=== PATIENT | female | born 1985 | race Caucasian/White ===

== ENCOUNTER 2024-06-07 21:16 | Emergency (ER) | payer BC, SELFPAY ==
[2024-06-07] VITALS (8 sets, daily range): BP systolic 138; BP diastolic 95; PULSE 69–79; RESP 20; TEMP 36.2; O2SAT 97–100; BMI 38.1
--- NOTE | 2024-06-07 21:41 | CRLHL7_ITS ---
For Patients: As a result of the Century Cures Act, medical imaging exams and procedure reports are released immediately into your electronic medical record. You may view this report before your referring provider. If you have questions, please contact your health care provider. INDICATION: Shortness of breath TECHNIQUE: Chest radiograph 2 views COMPARISON: None FINDINGS: The sensitivity and specificity of the exam are moderately limited by the patient`s body habitus. Mediastinum: The mediastinum is normal in appearance. The heart silhouette is normal in size and morphology. Lung: Both lungs are unremarkable in appearance. No sign of pleural effusion seen. No pneumothorax is identified. Bone and Soft tissue: Unremarkable for age. Bilateral metallic nipple piercings are noted. IMPRESSION: 1. No acute cardiopulmonary disease is seen. Dictated by: Carlito White MD @ 06/07/2024 22:09:59 (Electronically Signed)
[2024-06-07 21:45] LABS: Basophils Absolute Auto 0.04 K/uL (0.00-0.30); Basophils Percent Auto 0.4 % (0.0-3.0); Eosinophils Absolute Auto 0.42 K/uL (0.00-0.50); Eosinophils Percent Auto 4.7 % (0.0-7.0); Hematocrit 34.1 % (33.0-51.0); Hemoglobin* 10.6 gm/dL (12.0-16.0); Immature Granulocytes Abs Auto 0.01 K/uL (0.00-0.30); Immature Granulocytes Pct Auto 0.1 %; Lymphocytes Absolute Auto 3.54 K/uL (0.90-2.90); Lymphocytes Percent Auto 39.8 % (20-44); Mean Corpuscular HGB Conc 31 gm/dL (32-36); Mean Corpuscular Hemoglobin 27 pg (26-34); Mean Corpuscular Volume 86 fL (80-100); Monocytes Percent Auto 6.3 % (0.0-11.0); Neutrophils Absolute Auto 4.32 K/uL (1.7-7.0); Neutrophils Percent Auto 48.7 % (42.0-72.0); Platelet Count* 287 K/uL (140-440); RDW Coefficient of Variation % 14.7 % (11.5-15.5); Red Blood Count 3.98 m/uL (4.00-5.20); White Blood Count* 8.89 K/uL (4.50-11.00)
[2024-06-07 21:58] LABS: Chloride* 111 mmol/L (96-114); Potassium* 3.7 mmol/L (3.6-5.1); Sodium* 138 mmol/L (135-149)
[2024-06-07 22:01] LABS: Anion Gap 7 mEq/L (7-15); Blood Urea Nitrogen* 18 mg/dL (5-24); Carbon Dioxide* 20 mmol/L (20-32); Creatinine* 0.9 mg/dL (0.5-1.5); Est. Creatinine Clearance* 70.11; Estimated Glomerular Filt Rate 84 ml/min
[2024-06-07 22:02] LABS: Calcium* 8.7 mg/dL (8.4-10.6); Glucose* 89 mg/dL (60-115)
[2024-06-07 22:06] LABS: Slide Review Reflex No
--- NOTE | 2024-06-07 22:10 | ED_ITS ---
HPI - General Adult General Chief complaint: Shortness of Breath/Dyspnea Stated complaint: Shortness of breath Time Seen by Provider: 06/07/24 21:19 History of Present Illness HPI narrative: This 39-year-old female comes in reporting shortness of breath and chest discomfort. She arrives with normal vital signs but reports shortness of breath with almost any kind of exertion. She also describes some chest discomfort that is worse with taking a deep breath but also is present otherwise. She also states that she has bilateral lower extremity swelling. She does not report any fevers. She does have an occasional cough that is nonproductive. She is a smoker and states that her mother recently from a sudden heart attack. Her mother was 59 years old and also was a smoker. Related Data Home Medications ?Medication ?Instructions ?Recorded ?Confirmed gabapentin 300 mg capsule 300 mg PO 3XD 06/07/24 06/07/24 topiramate 100 mg tablet 100 mg PO BID 06/07/24 06/07/24 Previous Rx's ?Medication ?Instructions ?Recorded furosemide 20 mg tablet (Lasix) 20 mg PO DAILY #14 tabs 06/07/24 Allergies Allergy/AdvReac Type Severity Reaction Status Date / Time Iodinated Contrast Media Allergy Verified 06/07/24 21:36 Review of Systems Status of ROS: Reports: 10 or more systems reviewed and unremarkable except as noted in History and below Narrative: Constitutional: No fevers, no weight gain or loss. Eyes: No discharge. No vision changes. HENT: No congestion, no sore throat, no ear pain. Cardiovascular: No palpitations. Respiratory: Shortness of breath with exertion. Gastrointestinal: No abdominal pain, no vomiting, no diarrhea. Genitourinary: No dysuria, no hematuria. Musculoskeletal: Normal range of motion. Skin: No rashes, no pruritis. Neurological: No dizziness, weakness, speech change. She reports tingling se nsations throughout her body and did start taking gabapentin about a week or 2 ago to treat these symptoms. Endo/Heme/Allergies: No bruising or bleeding. No polydipsia. Pysch: no suicidality, no anxiety, no insomnia. All other systems reviewed and are negative. Exam Narrative: Exam Narrative: Constitutional: Well-developed, well-nourished, no acute distress. HEENT: Normocephalic, atraumatic. Neck: Normal range of motion. Nontender. Supple. Heart: Regular. No murmurs. Normal rate. Intact distal pulses. Lungs: Clear to auscultation. No wheezes, rhonchi, or rales. Abdomen: Normal bowel sounds. Nontender. No rebound tenderness. Genitalia: Deferred. Back: No midline tenderness. Normal range of motion. Extremities: Normal range of motion. No injury. Skin: Intact. No rash. Warm. No erythema or pallor. Neurologic: No altered sensation. No weakness. Alert and oriented. Psychiatric: No suicidality. No anxiety or depression. No insomnia. Nursing notes and vitals signs are reviewed. Const: Vital Signs, click to edit/add: Vital Signs - 24 hr 06/07/24 21:28 06/07/24 21:31 06/07/24 21:35 Temperature 97.1 F L Pulse Rate 79 73 Pulse Rate [Pulse Oximeter] 71 Respiratory Rate 20 Blood Pressure 138/95 H Blood Pressure [Ri ght Upper Arm] 138/95 H Pulse Oximetry 100 98 100 Oxygen Delivery Me thod Room Air 06/07/24 21:45 06/07/24 22:00 06/07/24 22:15 Temperature Pulse Rate 74 77 69 Pulse Rate [Pulse Oximeter] Respiratory Rate Blood Pressure Blood Pressure [Ri ght Upper Arm] Pulse Oximetry 100 100 98 Oxygen Delivery Me thod 06/07/24 22:30 06/07/24 22:45 Temperature Pulse Rate 74 75 Pulse Rate [Pulse Oximeter] Respiratory Rate Blood Pressure Blood Pressure [Ri ght Upper Arm] Pulse Oximetry 98 97 Oxygen Delivery Me thod Course Vital Signs Vital signs: Initial Vital Signs Temperature 97.1 F L 06/07/24 21:28 Temperature Source Temporal Artery Scan 06/07/24 21:28 Pulse Rate 71 06/07/24 21:28 Pulse Rhythm Regular 06/07/24 21:28 Respiratory Rate 20 06/07/24 21:28 Blood Pressure 138/95 H 06/07/24 21:28 Blood Pressure Mean 109 H 06/07/24 21:28 Blood Pressure Position Supine 06/07/24 21:28 Pulse Oximetry 100 06/07/24 21:28 Oxygen Delivery Method Room Air 06/07/24 21:28 Vital Signs Temperature 97.1 F L 06/07/24 21:28 Pulse Rate 71 06/07/24 21:28 Respiratory Rate 20 06/07/24 21:28 Blood Pressure 138/95 H 06/07/24 21:28 Pulse Oximetry 100 06/07/24 21:28 Oxygen Delivery Method Room Air 06/07/24 21:28 Temperature 97.1 F L 06/07/24 21:28 Pulse Rate 75 06/07/24 22:45 Respiratory Rate 20 06/07/24 21:28 Blood Pressure 138/95 H 06/07/24 21:35 Pulse Oximetry 97 06/07/24 22:45 Oxygen Delivery Method Room Air 06/07/24 21:28 Medical Decision Making MDM Narrative Medical decision making narrative: This patient comes in reporting shortness of breath and chest discomfort. She does state that her chest pain is distinctly reproducible when taking a deep breath and with certain movements. She does arrive with normal vital signs. She does have some cardiac risk factors with family history and smoking. Labs and EKG are acquired. These all returned with normal results. Her D-dimer is in normal range. Troponin is negative. EKG is normal. And her B type nitrate peptide is normal. Her symptoms are likely due to chest wall pain. She also is retaining some fluid in her lower extremities. The patient is okay to be discharged home. She does have a follow-up appointment with her primary physician in a week. I did recommend a stress test for further have evaluation. She did receive prescription for some tablets of Lasix for diuresis and anInstymed prescription of Toradol. Lab Data Labs: Lab Results 06/07/24 06/07/24 Range/Units 21:41 22:09 WBC 8.89 (4.50-11.00) K/uL RBC 3.98 L (4.00-5.20) m/uL Hgb 10.6 L (12.0-16.0) gm/dL Hct 34.1 (33.0-51.0) % MCV 86 (80-100) fL MCH 27 (26-34) pg MCHC 31 L (32-36) gm/dL RDW Coeff of Alissa 14.7 (11.5-15.5) % Plt Count 287 (140-440) K/uL Neut % (Auto) 48.7 (42.0-72.0) % Lymph % (Auto) 39.8 (20-44) % [place] % (Auto) 6.3 (0.0-11.0) % Eos % (Auto) 4.7 (0.0-7.0) % Baso % (Auto) 0.4 (0.0-3.0) % Neut # (Auto) 4.32 (1.7-7.0) K/uL Lymph # (Auto) 3.54 H (0.90-2.90) K/uL [place] # (Auto) 0.60 (0.00-0.90) K/UL Eos # (Auto) 0.42 (0.00-0.50) K/uL Baso # (Auto) 0.04 (0.00-0.30) K/uL Abs Immat Gran (auto) 0.01 (0.00-0.30) K/uL Imm/Tot Granulo (auto) 0.1 % D-Dimer Quant (PE/DVT) 0.37 (0.00-0.50) ug/ml Sodium 138 (135-149) mmol/L Potassium 3.7 (3.6-5.1) mmol/L Chloride 111 (96-114) mmol/L Carbon Dioxide 20 (20-32) mmol/L Anion Gap 7 (7-15) mEq/L BUN 18 (5-24) mg/dL Creatinine 0.9 (0.5-1.5) mg/dL Estimated Creat Clear 70.11 Estimated GFR 84 ml/min Glucose 89 (60-115) mg/dL Calcium 8.7 (8.4-10.6) mg/dL Troponin I < 0.01 L (0.01-0.04) ng/mL C-Reactive Protein 0.6 (0.5-1.0) mg/dL NT-Pro-B Natriuret Pep < 20 pg/mL ECG Data Attestation: I personally reviewed and interpreted this ECG as follows: Interpretation: Normal sinus rhythm. Rate is 79 beats per minute. There are no ST or T-wave abnormalities. Discharge Plan Discharge Clinical Impression: Acute chest wall pain, Bilateral edema of lower extremity Patient Disposition: Home, Self-Care Condition: Stable Additional Instructions: Take medication as prescribed. Follow up with MD as scheduled. Return if worsening. Prescriptions: New furosemide [Lasix] 20 mg tablet 20 mg PO DAILY Qty: 14 2RF No Action gabapentin 300 mg capsule 300 mg PO 3XD topiramate 100 mg tablet 100 mg PO BID Follow Up/Referrals: Provider,Not a Local [Primary Care Provider] - Stand Alone Forms: [employer] Info Instructions
[2024-06-07 22:11] LABS: D Dimer Quantitative* 0.37 ug/ml (0.00-0.50)
[2024-06-07 22:25] LABS: C Reactive Protein* 0.6 mg/dL (0.5-1.0)
--- OUTSIDE RECORDS SUMMARY | 2024-06-07 22:44 | XMS_ITS | Encounter Summary ---
Author Organization [facility] Address [address] [place] [address] Care Team Providers Care Master Data Analyst Name Role Phone Elsewhere, Pcp Primary Care Provider Unavailabl e Reason for Visit * Reason Comments Fatigue * Appointment Request (Routine) - Closed Specialty Diagnoses / Procedures Referred By Contbill t Referred To Contact Family Medicine Referral ID Status Reason Start Date Expiration Date Visits Re quested Visits Authorized [id number] Closed 05/30/2024 05/30/2025 1 1 Encounter Details Date Type Department Care Team (Late st Contact Info) Description 05/30/2024 2:00 PM CDT Office Visit Department of Family Medicine, [facility] [place], in [place], [place] [address] [id number] Reid Garcia M.D. [address] [phone] Malaise (Concern For Covid-19) (Primary Dx) Social History Tobacco Use Types Packs/Day Years Used Date Smoking Tobacco: Some Days Cigarettes Smokeless Tobacco: Never Tobacco Cessation:Ready to Q uit: Not Asked; Counseling Given: Not Answered Alcohol Use Standard Drinks/Week Comments Yes 0 (1 standard drink = 0.6 oz pur e alcohol) special occasions [facility] Utilities Answer Date Recorded In the past 12 months has th e electric, gas, oil, or water company threatened to shut off services in your home? No 05/30/2024 Humiliation, Afraid, Rape, and Kick questionnair e Answer Date Recorded Within the last year, have y ou been afraid of your partner or ex-partner? No 10/19/2021 Within the last year, have y ou been humiliated or emotionally abused in other ways by your partner or ex-partner? No Within the last year, have y ou been kicked, hit, slapped, or otherwise physically hurt by your partner or ex-partner? No 10/19/2021 Within the last year, have y ou been raped or forced to have any kind of sexual activity by your partner or ex-partner? No 10/19/2021 Social Connection and Isolat ion Panel [NHANES] Answer Date Recorded In a typical week, how many times do you talk on the phone with family, friends, or neighbors? More than three times a week 10/19/2021 How often do you get togethe r with friends or relatives? Twice a week 10/19/2021 How often do you attend chur or yarsanism services? More than 4 times per year 10/19/2021 Do you belong to any clubs o r organizations such as adventist groups, unions, fraternal or athletic groups, or school groups? No 10/19/2021 How often do you attend meet ings of the clubs or organizations you belong to? Patient declined 10/19/2021 Are you , , di vorced, , never , or living with a partner? Living with partner 10/19/2021 AUDIT-C Answer Date Recorded Q1: How often do you have a drink containing alc ohol? Monthly or less 10/19/2021 Q2: How many drinks containi ng alcohol do you have on a typical day when you are drinking? 1 or 2 10/19/2021 Q3: How often do you have si x or more drinks on one occasion? Never 10/19/2021 Overall Financial Resource Strain (CARDIA) Answe r Date Recorded How hard is it for you to pa y for the very basics like food, housing, medical care, and heating? Not hard at all 10/19/2021 PHQ-2 Answer Date Recorded PHQ-2 Score 0 05/30/2024 [facility]at ional [facility] - Occupational Stress Questionnaire Answer Date Recorded Do you feel stress - tense, restless, nervous, or anxious, or unable to sleep at night because your mind is troubled all the time - these days? Only a little 10/19/2021 Exercise Vital Sign Answer Date Recorde d On average, how many days pe r week do you engage in moderate to strenuous exercise (like a brisk walk)? 2 days 05/30/2024 On average, how many minutes do you engage in exercise at this level? 20 min 05/30/2024 Hunger Vital Sign Answer Date Recorded Within the past 12 months, y ou worried that your food would run out before you got the money to buy more. Never true 05/30/20 24 Within the past 12 months, t he food you bought just didn't last and you didn't have money to get more. Never true 05/30/2024 PRAPARE - Transportation Answer Date Re corded In the past 12 months, has l ack of transportation kept you from medical appointments or from getting medications? No 05/16 In the past 12 months, has l ack of transportation kept you from meetings, work, or from getting things needed for daily living? No 05/30/2024 Nutrition Answer Date Recorded On average, how many serving s of fruits and vegetables do you eat per day (serving size is equal to 1 cup or approximately the size of a tennis ball)? 0-2 05/30/2024 Dental Answer Date Recorded Dental: Regular Dentist Yes 04/26/20 Employment Answer Date Recorded Employment status Unemployed/not in th e paid workforce but seeking employment 05/30/2024 Housing Stability Answer Date Recorded What is your living situation today? I [facility] place to live 05/30/2024 Education Answer Date Recorded What is the highest level of school you have completed or the highest degree you have received? 12th grade 04/23/2019 Sex and Gender Information Value Date Recorded Sex Assigned at Female 01/28/2019 9:58 AM CDT Gender Identity Female 01/28/2019 9:58 AM CDT Sexual Orientation Straight 01/28/2019 9: 58 AM CDT documented as of this encounter Last Filed Vital Signs Vital Sign Reading Time Taken Comments Blood Pressure 127/76 05/30/2024 2:03 PM CDT Pulse 98 05/30/2024 2:03 PM CDT Temperature 37.1 ??C (98.7 ??F) 05/30/2024 2:03 PM CD T Respiratory Rate - - Oxygen Saturation - - Inhaled Oxygen Concentration - - Weight 106 kg (233 lb 14.5 oz) 05/30/2024 2:03 P M CDT Height - - Body Mass Index 40.38 07/16/2021 8:36 AM CDT documented in this encounter Progress Notes * Reid Garcia M.D. - 05/30/2024 2:00 PM CDT SUBJECTIVE CHIEF COMPLAINT/REASON FOR VISIT Tess Wren is a 39 y.o. female that presents with fatigue as well as numbness/tingling in the extremities x 2 weeks. She noted that her lower leg(s) became indented when she leaned against something a few days ago. She has also been coughing rather harshly now over the last 2 days and feeling her breathing is somewhat tight. Her wrist/forearms have been weak/shaky and painful when she is lifting anything. CURRENT MEDICATIONS Current Outpatient Medications: acetaminophen (TYLENOL) 500 mg tablet, Take 1,000 mg by mouth as needed. , Disp: , Rfl: calcium carbonate (TUMS ULTRA) 250 mg (100 mg calcium) chewable tablet, 500 mg as needed. , Disp: ,Rfl: ibuprofen (ADVIL,MOTRIN) 600 mg tablet, TAKE 1 TABLET(600 MG) BY MOUTH THREE TIMES DAILY FOR 14 DAYS, Disp: 90 tablet, Rfl: 3 topiramate (TOPAMAX) 100 mg tablet, Take 1 tablet (100 mg total) by mouth 2 (two) times a day., Disp: 60 tablet, Rfl: 11 ALLERGIES/CONTRAINDICATIONS Allergies Allergen Reactions Contrast Dye [Gadolinium-Containing Contrast Media] Other (see comments) Iodinated Contrast Media Hives (Reselect Reaction) OBJECTIVE Vitals: 05/30/24 1403 BP: 127/76 Pulse: 98 Temp: 37.1 ??C PHYSICAL EXAMINATION General Appearance: No acute distress. Appearing somewhat tired today. HEENT: Oropharynx clear. Ears fine. Neck negative for masses or nodes of significance. Chest: Lungs clear, no accessory muscle use. Short fits of dry cough. Extremities: Good range of motion of all extremities, gait fine. Arms with tenderness along the flexor compartment of both forearms near the wrist. Finger range of motion and strength normal. Integumentary: Skin color and turgor normal. DIAGNOSTICS CBC with Hgb 10.7, crit 34.7. Bmp and TSH essentially within normal limits. COVID/influenza screen negative. ASSESSMENT / PLAN URI, NOS, likely viral. Mild anemia. Paresthesias as noted above, NOS. Mild fluid retention in the lower legs. Tendonitis vs overuse in the forearms/wrists. Use of wrist braces, compression stockings and other conservative measures reviewed. Prescriptions for zithromax and neurontin are discussed to be held at the pharmacy to be consideredif not improving as expected. All questions are discussed and answered. Patient voices good understanding and agreement with our plan. Follow-up with primary care otherwise as needed. documented in this encounter Plan of Treatment Not on file documented as of this encounter Procedures Procedure Name Priority Date/Time Associated Diagnosis Comments SARS COV-2, INFLUENZA A/B, PCR, V Routine 05/30/2024 2:31 PM CDT Malaise (Concern For Covid-19) documented in this encounter Results * S-TSH (Thyroid-Stimulating Hormone - Sensitive) (05/30/2024 2:40 PM CDT) TSH, Sensitive 0.9 0.3 - 4.2 mIU/L 05/30/2024 3:10 PM CDT [facility] Blood (Blood, Venous) 05/30/2024 2:40 PM CDT 05/30/2024 2:41 PM CDT Reid Garcia M.D. LAB BLOOD ADD-ON [facility] [address] [place] [address], [facility] [place] [address] [place] [address] * (ABNORMAL) Basic Metabolic Panel (05/30/2024 2:40 PM CDT) Potassium, P 4.3 3.6 - 5.2 mmol/L 05/30/2024 3:01 PM CDT [facility] Sodium, P 143 135 - 145 mmol/L 05/30/2024 3:01 PM CDT [facility] Chloride, P 109(H) 98 - 107 mmol/L 05/30/2024 3:01 PM CDT [facility] Bicarbonate, P 23 22 - 29 mmol/L 05/30/2024 3:01 PM CDT [facility] Anion Gap, P 11 7 - 15 05/30/2024 3:01 PM CDT [facility] BUN (Blood Urea Nitrogen), P 18 6 - 21 mg/dL 05/30/2024 3:01 PM CDT [facility] Creatinine 0.87 0.59 - 1.04 mg/dL 05/30/2024 3:01 PM CDT [facility] Estimated GFR (eGFR) 87 >=60 mL/min/BSA 05/30/2024 3:01 PM CDT [facility] Comment: Estimated GFR calculated using the 2020 CKD_EPI creatinine equation. Calcium, Total, P 9.3 8.6 - 10.0 mg/dL 05/30/2024 3:01 PM CDT [facility] Glucose, P 118 70 - 140 mg/dL 05/30/2024 3:01 PM CDT [facility] Blood (Blood, Venous) 05/30/2024 2:40 PM CDT 05/30/2024 2:41 PM CDT Reid Garcia M.D. LAB BLOOD ADD-ON [facility] [address] [place] [address], [facility] [facility] [place] [address] [place] [address] * (ABNORMAL) CBC with Differential, Blood (05/30/2024 2:40 PM CDT) Hemoglobin 10.7(L) 11.6 - 15.0 g/dL 05/30/2024 2:46 PM CDT [facility] Hematocrit 34.7(L) 35.5 - 44.9 % 05/30/2024 2:46 PM CDT [facility] Erythrocytes 4.05 3.92 - 5.13 x10(12)/L 05/30/2024 2:46 PM CDT [facility] MCV 85.7 78.2 - 97.9 fL 05/30/2024 2:46 PM CDT [facility] RBC Distrib Width 14.6 12.2 - 16.1 % 05/30/2024 2:46 PM CDT [facility] Platelet Count 295 157 - 371 x10(9)/L 05/30/2024 2:46 PM CDT [facility] Leukocytes 8.5 3.4 - 9.6 x10(9)/L 05/30/2024 2:46 PM CDT [facility] Neutrophils 4.83 1.56 - 6.45 x10(9)/L 05/30/2024 2:46 PM CDT [facility] Lymphocytes 2.80 0.95 - 3.07 x10(9)/L 05/30/2024 2:46 PM CDT [facility] Monocytes 0.43 0.26 - 0.81 x10(9)/L 05/30/2024 2:46 PM CDT [facility] Eosinophils 0.38 0.03 - 0.48 x10(9)/L 05/30/2024 2:46 PM CDT [facility] Basophils 0.07 0.01 - 0.08 x10(9)/L 05/30/2024 2:46 PM CDT [facility] Blood (Blood, Venous) 05/30/2024 2:40 PM CDT 05/30/2024 2:41 PM CDT Reid Garcia M.D. LAB BLOOD ADD-ON [facility] [address] [place] [address], [facility] [facility] [place] [address] [place] [address] * SARS CoV-2, Influenza A/B, PCR (05/30/2024 2:31 PM CDT) Influenza A, PCR Undetected Undetected 05/30/20 3:29 PM CDT [facility] Comment:Influenza A viral RN A absent. Influenza B, PCR Undetected Undetected 05/30/20 3:29 PM CDT [facility] Comment:Influenza B viral RN A absent. SARS-Coronavirus -2, PCR Undetected Undetected 05/30/2024 3:29 PM CDT [facility] Comment: SARS-CoV-2 RNA absent. ?? ----ADDITIONAL INFORMATION---- This RT-PCR test using the Xpert Xpress SARS-CoV-2/Flu/RSV assay ([employer] performed on the [employer] DX systems has received Emergency Use Authorization (EUA) by the U.S. Food and Drug Administration. Performance characteristics were verified by [facility] in a manner consistent with CLIA requirements. Fact sheets for this Emergency Use Authorization (EUA) assay can be found at the following links: For Healthcare Providers: https://www.fda.gov/media/863763/download For Patients: https://www.fda.gov/media/447468/download Specimen Source Swab, Nasopharynx 05/30/2024 2:49 PM CDT [facility] Swab (Nasopharynx) 05/30/2024 2:31 PM CDT 05/30/2024 2:49 PM CDT Reid Garcia M.D. LAB MICROBIOLOGY - G ENERAL ORDERABLES [facility] [address] [place] [address], [facility] [facility] [place] [address] [place] [id number] documented in this encounter Visit Diagnoses Diagnosis Malaise (Concern For Covid-19)- Primary documented in this encounter Additional Health Concerns Infection Onset Date Last Indicated Resolved Time COVID19 Pending 05/30/2024 05/30/2024 05/30/2024 3 :29 PM CDT documented as of this encounter Care Teams Master Data Analyst Relationship Specialty Start Date End Date Elsewhere, Pcp PCP - General Family Medicine 10/08/20 documented as of this encounter
--- OUTSIDE RECORDS SUMMARY | 2024-06-07 22:44 | XMS_ITS ---
Author Organization [facility] Address [address] [place] [address] Care Team Providers Care Grid Maker Name Role Phone Unavailable Unavailable Unavailable Surgery Details Not on file Complications Check Surgery Details section. Procedure Estimated Blood Loss Check Surgery Details section. Procedure Findings Check Surgery Details section. Procedure Specimens Taken Check Surgery Details section.
--- OUTSIDE RECORDS SUMMARY | 2024-06-07 22:44 | XMS_ITS | Referral Summary ---
Author Organization [facility] Address [address] [place] [address] Care Team Providers Care Director Organizational Name Role Phone Elsewhere, Pcp Primary Care Provider Unavailabl e Source Comments Patient records contain information from all sites at [facility]. For routine questions regarding patient records, call [phone] during business hours, M-F 8:00 AM - 5:00 PM Central Time. Record requests for emergency care only can be directed to [phone] at any time.[facility] Encounters Date Type Department Care Team Description 05/30/2024 2:33 PM CDT - 05/30/2024 11:59 PM CDT Hospital Encounter Department of Laboratory Medicine in [place], [place] [address] [phone] Reid Garcia M.D. Malaise (Concern For Covid-19) Discharge Disposition: Home or Self Care 05/30/2024 2:00 PM CDT Office Visit Department of Family Medicine, [facility], in [place], [place] [address] [phone] Reid Garcia M.D. Malaise (Concern For Covid-19) (Primary Dx) 05/30/2024 Nurse Triage Department of Community Internal Medicine in [place], [place] [address] [place] [address] River Danielle R.N. Fatigue; Numbness from Last 3 Months Allergies Active Allergy Reactions Criticality Noted Date Comments Gadolinium-Containing Contrast Media Other (see comments) 08/24/2011 Iodinated Contrast Media Hives (Reselect Reaction) 05/19/2007 Medications Medication Sig Dispensed Refills Start Date End Date Status acetaminophen (TYLENOL) 500 mg tablet Take 1,000 mg by mouth as needed. Active calcium carbonate (TUMS ULTRA) 250 mg (100 mg calcium) chewable tablet 500 mg as needed. 11/11/2011 Active ibuprofen (ADVIL,MOTRIN) 600 mg tablet TAKE 1 TABLET(600 MG) BY MOUTH THREE TIMES DAILY FOR 14 DAYS 90 tablet 3 09/13/2021 Active topiramate (TOPAMAX) 100 mg tablet Take 1 tablet (100 mg total) by mouth 2 (two) times a day. 60 tablet 11 08/30/2023 Active gabapentin (Neurontin) 300 mg capsule Take 1 capsule (300 mg total) by mouth 3 (three) times a day. 90 capsule 05/30/2024 Active multivitamin chewable tablet 1 tablet daily. 09/13/2011 05/30/20 24 Discontinued SUMAtriptan (IMITREX) 50 mg tabletIndicatio ns:Migraine Headache Take 1 tablet (50 mg total) by mouth as needed for migraine. May repeat dose once in 2 hours if migraine unresolved. Do not exceed 200 mg in 24 hours. 27 tablet 3 04/26/2021 05/30/20 24 Discontinued fluticasone propionate (FLONASE) 50 mcg/actuation nasal spray Administer 2 sprays into each nostril daily. 16 g 02/09/2022 05/30/20 24 Discontinued(The rapy completed) amoxicillin (AMOXIL) 500 mg capsule TAKE 1 CAPSULE BY MOUTH THREE TIMES DAILY UNTIL GONE 09/28/2022 05/30/20 24 Discontinued azithromycin (Zithromax) 250 mg tablet Take 2 tablets (500 mg total) by mouth daily for 1 day, THEN 1 tablet (250 mg total) daily for 4 days. 6 tablet 05/30/2024 06/04/20 24 Active Problems Problem Noted Date Diagnosed Date Pericarditis Acute Idiopathic 01/23/2019 Pain Chest 01/22/2019 Diabetes Mellitus Gestational 014 Migraine Headache 06/24/2011 Other Specified Bacterial Intestinal Infections 12/23/2010 Immunizations Name Administration Dates Next Due Influenza TIV (IM) 11/16/2011 Influenza, Seasonal, Injectable 11/16/2011 Influenza, Unspecified 08/24/2011 Tdap 11/16/2011 Social History Tobacco Use Types Packs/Day Years Used Date Smoking Tobacco: Some Days Cigarettes Smokeless Tobacco: Never Tobacco Cessation:Ready to Q uit: Not Asked; Counseling Given: Not Answered Alcohol Use Standard Drinks/Week Comments Yes 0 (1 standard drink = 0.6 oz pur e alcohol) special occasions [facility] Utilities Answer Date Recorded In the past 12 months has e [employer], gas, oil, or water company threatened to [...] week 10/19/2021 How often do you attend [facility] or presybeterian services? More than 4 times per year 10/19/2021 Do you belong to any clubs o r organizations such as hindu groups, unions, fraternal or athletic groups, or [...] Answer Date Recorded PHQ-2 Score 0 05/30/2024 [facility] of Occupat ional Health - Occupational Stress [...] Date Recorded Dental: Regular Dentist Yes 04/26/20 21 Employment Answer Date Recorded Employment status Unemployed/not in th e paid workforce but seeking employment 05/30/2024 Housing Stability Answer Date Recorded What is your living situation today? [facility] 05/30/2024 Education Answer Date Recorded What is the highest level of school you have completed or the highest degree you have received? 12th grade 04/23/2019 Sex and Gender Information Value Date Recorded Sex Assigned at Female 01/28/2019 9:58 AM CDT Gender Identity Female 01/28/2019 9:58 AM CDT Sexual Orientation Straight 01/28/2019 9: 58 AM CDT Last Filed Vital Signs Vital Sign Reading Time Taken Comments Blood Pressure 127/76 05/30/2024 2:03 PM CDT Pulse 98 05/30/2024 2:03 PM CDT Temperature 37.1 ??C (98.7 ??F) 05/30/2024 2:03 PM CD T Respiratory Rate 20 10/03/2022 3:19 PM MANAGER RN CASE Oxygen Saturation 97% 10/03/2022 3:19 PM MANAGER RN CASE Inhaled Oxygen Concentration - - Weight 106 kg (233 lb 14.5 oz) 05/30/2024 2:03 P M CDT Height 162.1 cm (5' 3.82) 07/16/2021 8:36 AM CD T Body Mass Index 40.38 07/16/2021 8:36 AM CDT Plan of Treatment Not on file Procedures Procedure Name Priority Date/Time Associated Diagnosis Comments THYROID-STIMULATING HORMONE-SENSITIVE (S-TSH) Routine 05/30/2024 2:40 PM CDT Malaise (Concern For Covid-19) BASIC METABOLIC PANEL, S/P Routine 05/30/2024 2:40 PM CDT Malaise (Concern For Covid-19) CBC WITH DIFFERENTIAL, B Routine 05/30/2024 2:40 PM CDT Malaise (Concern For Covid-19) SARS COV-2, INFLUENZA A/B, PCR, V Routine 05/30/2024 2:31 PM CDT Malaise (Concern For Covid-19) THINPREP SCREEN HPV REFLEX Routine 08/24/2011 9:42 AM MANAGER RN CASE from Last 3 Months or Most Recently Relevant to Health Maintenance Results * (ABNORMAL) CBC with Differential, Blood (05/30/2024 2:40 PM CDT) [facility] Hemoglobin 10.7(L) 11.6 - 15.0 g/dL 05/30/2024 [...] CDT Reid Garcia M.D. LAB BLOOD ADD-ON [facility] [address] [place] [address], [place] OW[place] [facility] [place] [address] [place] [address] * S-TSH (Thyroid-Stimulating Hormone - Sensitive) (05/30/2024 2:40 PM CDT) TSH, Sensitive 0.9 0.3 - 4.2 mIU/L 05/30/2024 3:10 PM CDT OWAT Blood (Blood, Venous) 05/30/2024 2:40 PM CDT 05/30/2024 2:41 PM CDT Reid Garcia M.D. LAB BLOOD ADD-ON [facility] [address] [place] [address], [place] [facility] [place] [address] [place] [address] * (ABNORMAL) Basic Metabolic Panel (05/30/2024 2:40 [...] CDT Reid Garcia M.D. LAB BLOOD ADD-ON [facility] [address] [place] [address], [facility] OWAT [facility] [address] [place] [address] * SARS CoV-2, Influenza A/B, PCR (05/30/2024 2:31 PM CDT) [facility] Influenza A, PCR Undetected Undetected 05/30/20 3:29 PM CDT OWAT Comment:Influenza A viral RN A absent. Influenza B, PCR Undetected Undetected 05/30/20 3:29 PM CDT OWAT Comment:Influenza B viral RN A absent. SARS-Coronavirus -2, PCR Undetected Undetected 05/30/2024 3:29 PM CDT OWAT Comment: SARS-CoV-2 RNA absent. ?? ----ADDITIONAL INFORMATION---- This RT-PCR test using the Xpert Xpress SARS-CoV-2/Flu/RSV assay ([employer] performed on the GeneXAirPlug DX systems has received Emergency Use Authorization (EUA) by the U.S. Food and Drug Administration. Performance characteristics were verified by [facility] in a manner consistent with CLIA requirements. Fact sheets for this Emergency Use Authorization (EUA) assay can be found at the following links: For Healthcare Providers: https://www.fda.gov/media/512675/download For Patients: https://www.fda.gov/media/604906/download Specimen Source Swab, Nasopharynx 05/30/2024 2:49 PM CDT OWAT Swab (Nasopharynx) 05/30/2024 2:31 PM CDT 05/30/2024 2:49 PM CDT Reid Garcia M.D. LAB MICROBIOLOGY - G ENERAL ORDERABLES [facility] [address] [place] [address], [place] [facility] [place] [address] [place] [address] * ThinPrep Screen HPV Reflex (08/24/2011 9:42 AM MANAGER RN CASE) Interpretation [id number] POWERCHART HXThPrep Scrn Fnl-[place] See Comment POWERCHART Comment: A. ??ThinPrep Pap Test Screen (Cervical/Endocervical HPV Reflex): Satisfactory for evaluation. Negative for intraepithelial lesion or malignancy. HXThPrep Scrn [facility]to[facility] See Comment POWERCHART Comment: Report electronically signed by NIXON Jaime(ASCP) 08/29/2011 13:51 Interpreted by: NIXON Dolan(ASCP) HX Spec Desc[facility] See Comment POWERCHART Comment: A. ??ThinPrep Pap Test Screen (Cervical/Endocervical HPV Reflex): Received cloudy specimen in ThinPrep vial. Test Performed by: [facility] Dpt of Lab Med and Pathology [address] [place] [address] Gear Repairer: Omi Doyle III, M.D. Cervix/Endocervix 08/24/2011 9:42 AM MANAGER RN CASE Kings Drake Jr., M.D. LAB PAP PATHDX ORDERABLES POWERCHART from Last 3 Months or Most Recently Relevant to Health Maintenance Care Teams Director Organizational Relationship Specialty Start Date End Date Elsewhere, Pcp PCP - General Family Medicine 10/08/20
--- OUTSIDE RECORDS SUMMARY | 2024-06-07 22:44 | XMS_ITS | Encounter Summary ---
Author Organization [facility] Address [address] [place] [address] Care Team Providers Care Sales Associate Cashier Name Role Phone Elsewhere, Pcp Primary Care Provider Unavailabl e Reason for Visit * Reason Onset Date Comments Fatigue 05/30/2024 Numbness 05/30/2024 Encounter Details Date Type Department Care Team (Late st Contact Info) Description 05/30/2024 Nurse Triage Department of Community Internal Medicine in [place], [place] [address] [place] [phone] River Danielle R.N. [address] [place] [phone] Fatigue; Numbness Social History Tobacco Use Types Packs/Day Years Used Date Smoking Tobacco: Some Days Cigarettes Smokeless Tobacco: Never Alcohol Use Standard Drinks/Week Comments Yes 0 (1 standard drink = 0.6 oz pur e alcohol) special occasions [facility] Utilities Answer Date Recorded In the past 12 months has [facility] [employer], gas, oil, or water [employer] threatened to shut off services in your [...] week 10/19/2021 How often do you attend [facility] or protestant services? More than 4 times per year 10/19/2021 Do you belong to any clubs o r organizations such as sabianist groups, unions, fraternal or athletic groups, or [...] Answer Date Recorded PHQ-2 Score 0 05/30/2024 [facility] of Occupat ional Health - Occupational [...] your living situation today? I have a [facility] place to live 05/30/2024 Education Answer Date Recorded What is the highest level of school you have completed or the highest degree you have received? 12th grade 04/23/2019 Sex and Gender Information Value Date Recorded Sex Assigned at Female 01/28/2019 9:58 AM CDT Gender Identity Female 01/28/2019 9:58 AM CDT Sexual Orientation Straight 01/28/2019 9: 58 AM CDT documented as of this encounter Miscellaneous Notes * Telephone Encounter - River Danielle R.N. - 05/30/2024 10:13 AM CDT Chief Complaint / Reason for Call Patient is a 39 y.o. female calling regarding Fatigue and Numbness. Assessment Concern: tingling in hands and feet in the past 2 weeks, fatigue, just not feeling well, slight cough Present for: 2 weeks Home cares tried: rest Calling to request: an appointment The recommended disposition is See a health care provider within 3 days. Patient was provided scheduling phone number, plan of care, and transferred to scheduling per current regional process. Reason for Disposition [1] Numbness or tingling on both sides of body AND [2] is a new symptom present > 24 hours Protocols used: Neurologic [id number] Care Advice Patient/Caregiver understands and will follow care advice?: Yes, able to teach back Neurologic [id number] Nurse River Gu May 30, 2024 10:17 AM Care Advice SEE PCP WITHIN 3 DAYS: * You need to be seen within 2 or 3 days. * PCP VISIT: Call your doctor (or SENIOR DATABASE PROGRAMMER/PA) during regular office hours and make an appointment. A clinic or urgent care center are good places to go for care if your doctor's office is closed or you can't get an appointment. NOTE: If office will be open tomorrow, tell caller to call then, not in 3 days. * IF PATIENT HAS NO PCP: A clinic or urgent care center are good places to go for care if you do not have a primary care provider. NOTE: Try to help caller find a PCP for future care (e.g., use a physician referral line). Having a PCP or 'medical home' means better long-term care. CALL BACK IF: * You become worse CARE ADVICE given per Neurologic Deficit (Adult) guideline. documented in this encounter Plan of Treatment Not on file documented as of this encounter Visit Diagnoses Not on filedocumented in this encounter Care Teams Sales Associate Cashier Relationship Specialty Start Date End Date Elsewhere, Pcp PCP - General Family Medicine 10/08/20 documented as of this encounter
--- OUTSIDE RECORDS SUMMARY | 2024-06-07 22:44 | XMS_ITS | Clinical Summary ---
Author Organization [facility] Address [address] [place] [address] Care Team Providers Care Animal Researcher Name Role Phone Elsewhere, Pcp Primary Care Provider Unavailabl e Source Comments Patient records contain information from all sites at [facility]. For routine questions regarding patient records, call [phone] during business hours, M-F 8:00 AM - 5:00 PM Central Time. Record requests for emergency care only can be directed to [phone] at any time.[facility] Allergies Active Allergy Reactions Criticality Noted Date [...] 06/24/2011 Other Specified Bacterial Intestinal Infections 12/23/2010 Encounters Date Type Department Care Team Description 05/30/2024 2:33 PM CDT - 05/30/2024 11:59 PM CDT Hospital Encounter Department of Laboratory Medicine in [place], [place] [address] [phone] Reid Garcia M.D. Malaise (Concern For Covid-19) Discharge Disposition: Home or Self Care 05/30/2024 2:00 PM CDT Office Visit Department of Family Medicine, [facility], in [place], [place] [address] [phone] Reid Garcia M.D. Malaise (Concern For Covid-19) (Primary Dx) 05/30/2024 Nurse Triage Department of Community Internal Medicine in [address] [phone] River Danielle R.N. Fatigue; Numbness from Last 3 Months Immunizations Name Administration Dates Next Due Influenza [...] 0.6 oz pur e alcohol) special occasions [facility] Utilities Answer Date Recorded In the past 12 months has e [employer], gas, oil, or water company threatened to [...] week 10/19/2021 How often do you attend [facility] or baptism services? More than 4 times per year 10/19/2021 Do you belong to any clubs o r organizations such as yarsanism groups, unions, fraternal or athletic groups, or [...] Answer Date Recorded PHQ-2 Score 0 05/30/2024 [facility] of Occupat ional Health - Occupational Stress [...] your living situation today? [facility] 05/30/2024 Education Answer Date [...] T Respiratory Rate 20 10/03/2022 3:19 PM LEISURE STUDIES PROFESSOR Oxygen Saturation 97% 10/03/2022 3:19 PM LEISURE STUDIES PROFESSOR Inhaled Oxygen Concentration - - Weight 106 kg (233 lb 14.5 oz) 05/30/2024 2:03 P M CDT Height 162.1 cm (5' 3.82) 07/16/2021 8:36 AM CD T Body Mass Index 40.38 07/16/2021 8:36 AM CDT Plan of Treatment Health Maintenance Due Date Last Done Comments HIV Screening 1986 Hepatitis C Screening 1986 Pneumococcal vaccine (0-64 years) (1 of 2 - PCV) 01/03/1992 Hepatitis B Vaccines (1 of 3 - 19+ 3-dose series) 2005 Cervical Cancer Screening 08/24/2014 08/24/2011 DTaP,Tdap,and Td Vaccines (2 - Td or Tdap) 11/16/2021 11/16/2011 Tobacco Cessation counseling 04/26/2022 04/26/2021 COVID-19 Vaccine (1 - 2022-2 4 season) 2023 Lipid (Cholesterol) Screening 01/24/2024 01/23/2019 Influenza Vaccine (#1) 2024 2, 11/16/2011, 08/24/2011 Depression Screening (Annual PHQ-2) Completed 05/30/2024, 05/30/2024 HPV Vaccines Aged Out No longer eligi ble based on patient's age to complete this topic Procedures Procedure Name Priority Date/Time Associated Diagnosis [...] SCREEN HPV REFLEX Routine 08/24/2011 9:42 AM LEISURE STUDIES PROFESSOR from Last 3 Months or Most Recently [...] CDT Reid Garcia M.D. LAB BLOOD ADD-ON Performing Organization Address City/[facility] Co de Phone Number [facility] [address] [place] [address], [facility] [address] [place] [address] * S-TSH (Thyroid-Stimulating Hormone - Sensitive) (05/30/2024 2:40 PM CDT) TSH, Sensitive 0.9 0.3 - 4.2 mIU/L 05/30/2024 3:10 PM CDT OWAT Blood (Blood, Venous) 05/30/2024 2:40 PM CDT 05/30/2024 2:41 PM CDT Reid Garcia M.D. LAB BLOOD ADD-ON Performing Organization Address City/[facility]/ZIP Co de Phone Number [facility] [address], [place] [address], [facility] OWAT [facility] [address] [place] [address] * (ABNORMAL) Basic Metabolic Panel (05/30/2024 2:40 [...] CDT Reid Garcia M.D. LAB BLOOD ADD-ON [facility] [address] [place] [address], [facility] [address] [place] [address] * SARS CoV-2, Influenza A/B, PCR (05/30/2024 [...] test using the Xpert Xpress SARS-CoV-2/Flu/RSV assay ([employer] performed on the [employer]Land[employer] DX systems has received Emergency Use Authorization (EUA) by the U.S. Food and Drug Administration. Performance characteristics were verified by [facility] in a manner consistent with CLIA requirements. Fact sheets for this Emergency Use Authorization (EUA) assay can be found at the following links: For Healthcare Providers: https://www.fda.gov/media/435920/download For Patients: https://www.fda.gov/media/341018/download Specimen Source Swab, Nasopharynx 05/30/2024 2:49 PM CDT OW Swab (Nasopharynx) 05/30/2024 2:31 PM CDT 05/30/2024 2:49 PM CDT Reid Garcia M.D. LAB MICROBIOLOGY - [facility] ORDERABLES [facility] [address] [place] [address], [facility] [address] [place] [address] * ThinPrep Screen HPV Reflex (08/24/2011 9:42 AM LEISURE STUDIES PROFESSOR) Interpretation [id number] POWERCHART [facility] See Comment POWERCHART Comment: A. ??ThinPrep Pap Test Screen (Cervical/Endocervical HPV Reflex): Satisfactory for evaluation. Negative for intraepithelial lesion or malignancy. [facility] See Comment POWERCHART Comment: Report electronically signed by NIXON Jaime(ASCP) 08/29/2011 13:51 Interpreted by: NIXON Dolan(ASCP) [facility] See Comment POWERCHART Comment: A. ??ThinPrep Pap Test Screen (Cervical/Endocervical HPV Reflex): Received cloudy specimen in ThinPrep vial. Test Performed by: [facility] Dpt of Lab Med and Pathology [address] [place] [address] Complaint Supervisor: Omi Doyle III, M.D. Cervix/Endocervix 08/24/2011 9:42 AM LEISURE STUDIES PROFESSOR Kings Drake Jr., M.D. LAB PAP PATHDX ORDERABLES POWERCHART from Last 3 Months or Most Recently Relevant to Health Maintenance Care Teams Animal Researcher Relationship Specialty Start Date End Date Elsewhere, Pcp PCP - General Family Medicine 10/08/20
--- OUTSIDE RECORDS SUMMARY | 2024-06-07 22:44 | XMS_ITS | Encounter Summary ---
Author Organization [facility] Address [address] [place] [address] Care Team Providers Care Straight Truck Driver Name Role Phone Elsewhere, Pcp Primary Care Provider Unavailabl e Encounter Details Date Type Department Care Team (Latest Contact Info) Description 05/30/2024 2:33 PM CDT - 05/30/2024 11:59 PM CDT Hospital Encounter Department of Laboratory Medicine in [place], [place] [address] [phone] Reid Garcia M.D. [address] [phone] Malaise (Concern For Covid-19) Discharge Disposition: Home or Self Care Social History Tobacco Use Types Packs/Day Years Used Date Smoking Tobacco: Some Days Cigarettes Smokeless Tobacco: Never Alcohol Use Standard Drinks/Week Comments Yes 0 (1 standard drink = 0.6 oz pur e alcohol) special occasions [facility] Utilities Answer Date Recorded In the past 12 months has [facility] [employer], gas, oil, or water [employer] threatened to shut off services in your [...] How often do you attend chur or holiness services? More than 4 times per year 10/19/2021 Do you belong to any clubs o r organizations such as scientology groups, unions, fraternal or athletic groups, or [...] Answer Date Recorded PHQ-2 Score 0 05/30/2024 [facility] of Occupat ional Health - Occupational [...] your living situation today? I have a [facility] place to live 05/30/2024 Education Answer [...] AM CDT documented as of this encounter Medications at Time of Discharge Medication Sig Dispensed Refills Start Date End Date acetaminophen (TYLENOL) 500 mg tablet Take 1,000 mg by mouth as needed. calcium carbonate (TUMS ULTRA) 250 mg (100 mg calcium) chewable tablet 500 mg as needed. 11/11/2011 gabapentin (Neurontin) 300 mg capsule Take 1 capsule (300 mg total) by mouth 3 (three) times a day. 90 capsule 05/30/2024 ibuprofen (ADVIL,MOTRIN) 600 mg tablet TAKE 1 TABLET(600 MG) BY MOUTH THREE TIMES DAILY FOR 14 DAYS 90 tablet 3 09/13/2021 topiramate (TOPAMAX) 100 mg tablet Take 1 tablet (100 mg total) by mouth 2 (two) times a day. 60 tablet 11 08/30/2023 azithromycin (Zithromax) 250 mg tablet Take 2 tablets (500 mg total) by mouth daily for 1 day, THEN 1 tablet (250 mg total) daily for 4 days. 6 tablet 05/30/2024 06/04/2024 documented as of this encounter Plan of Treatment Not on file documented as of this encounter Procedures Procedure Name Priority Date/Time Associated Diagnosis Comments CBC WITH DIFFERENTIAL, B Routine 05/30/2024 2:40 PM CDT Malaise (Concern For Covid-19) THYROID-STIMULATING HORMONE-SENSITIVE (S-TSH) Routine 05/30/2024 2:40 PM CDT Malaise (Concern For Covid-19) BASIC METABOLIC PANEL, S/P Routine 05/30/2024 2:40 PM CDT Malaise (Concern For Covid-19) documented in this encounter Results * S-TSH (Thyroid-Stimulating Hormone - Sensitive) (05/30/2024 2:40 PM CDT) TSH, Sensitive 0.9 0.3 - 4.2 mIU/L 05/30/2024 3:10 PM CDT OWAT Blood (Blood, Venous) 05/30/2024 2:40 PM CDT 05/30/2024 2:41 PM CDT Reid Garcia M.D. LAB BLOOD ADD-ON [facility] [address] [place] [address], [place] OWAT [facility] [place] [address] [place] [address] * (ABNORMAL) Basic Metabolic Panel (05/30/2024 2:40 [...] CDT Reid Garcia M.D. LAB BLOOD ADD-ON [facility] [address] [place] [address], [facility] OWAT [facility] [place] [address] [place] [address] * (ABNORMAL) CBC with Differential, Blood (05/30/2024 [...] CDT Reid Garcia M.D. LAB BLOOD ADD-ON [facility] [address] [place] [address], [facility] OWAT [facility] [place] [address] [place] [address] documented in this encounter Visit Diagnoses Diagnosis Malaise (Concern For Covid-19) documented in this encounter Additional Health Concerns Infection Onset Date Last Indicated Resolved Time COVID19 Pending 05/30/2024 05/30/2024 05/30/2024 3 :29 PM CDT documented as of this encounter Care Teams Straight Truck Driver Relationship Specialty Start Date End Date Elsewhere, Pcp PCP - General Family Medicine 10/08/20 documented as of this encounter
[2024-06-07 22:57] LABS: NT Pro B Type NatriureticPept* < 20 pg/mL; Troponin I* < 0.01 ng/mL (0.01-0.04)
--- NOTE | 2024-06-08 00:45 | PC.NURSE ---
Physician updated, pt still having chest discomfort, pain with deep breath and worsens when lying flat. Repeat EKG done, VSS. EKG shows occassional PAC, PVCs. SO at bedside.
[2024-06-08 00:47] VITALS: BP 138/95; PULSE 74; RESP 18; TEMP 36.7; O2SAT 98
[2024-06-08] MEDS: IPRAT-ALBUT 0.5-2.5 MG/3 ML NEB 1 NEB IH (01:13)
--- NOTE | 2024-06-08 01:21 | PC.NURSE ---
Pt states neb treatment helped a bit, still c/o positional chest discomfort.
== END 2024-06-08 02:06 | disposition home or self-care (01) ==
PROVIDERS: Emergency Medicine Emergency Medical Services; Emergency Provider Emergency Medicine
DX: R07.89 Other chest pain (principal); R60.9 Edema, unspecified
CPT/HCPCS: 36415; 71046; 80048; 83880; 84484; 85025; 85379; 86140; 93005; 99284; 99285

== ENCOUNTER 2024-06-14 12:50 | Outpatient (CLI) | payer BC, SELFPAY ==
--- OUTSIDE RECORDS SUMMARY | 2024-06-14 12:54 | XMS_ITS | Clinical Summary ---
Author Organization [facility] Address [address] [place] [address] Care Team Providers Care Life Assurance Representative Name Role Phone Elsewhere, Pcp Primary Care Provider Unavailabl e Source Comments Patient records contain information from all sites at [facility]. For routine questions regarding patient records, call [phone] during business hours, M-F 8:00 AM - 5:00 PM Central Time. Record requests for emergency care only can be directed to [phone] at any time.[facility] Allergies Active Allergy Reactions Criticality Noted Date [...] Hospital Encounter Department of Laboratory Medicine in [place], [place] [address] [phone] Reid Garcia M.D. Malaise (Concern For Covid-19) Discharge Disposition: Home or Self Care 05/30/2024 2:00 PM CDT Office Visit Department of Family Medicine, [facility], in [place], [place] [address] [phone] Reid Garcia M.D. Malaise (Concern For Covid-19) (Primary Dx) 05/30/2024 Nurse Triage Department of Community Internal Medicine in [address] [phone] River Danielle R.N. Fatigue; Numbness from Last [...] pur e alcohol) special occasions [facility] Utilities Answer Date Recorded In the past 12 months has e [employer], gas, oil, or water company threatened to [...] week 10/19/2021 How often do you attend [facility] or holiness services? More than 4 times per year 10/19/2021 Do you belong to any clubs o r organizations such as roman catholic groups, unions, fraternal or athletic groups, or [...] Answer Date Recorded PHQ-2 Score 0 05/30/2024 [facility] of Occupat ional Health - Occupational Stress [...] your [facility] situation today? [facility] 05/30/2024 Education Answer Date [...] T Respiratory Rate 20 10/03/2022 3:19 PM SALES PROMOTER Oxygen Saturation 97% 10/03/2022 3:19 PM SALES PROMOTER Inhaled Oxygen Concentration - - Weight 106 [...] SCREEN HPV REFLEX Routine 08/24/2011 9:42 AM SALES PROMOTER from Last 3 Months or Most Recently [...] M.D. LAB BLOOD ADD-ON Performing Organization Address City/[facility] Co de Phone Number [facility] [address] [place] [address], [facility] [place] [address] [place] [address] * S-TSH (Thyroid-Stimulating Hormone - Sensitive) (05/30/2024 2:40 PM CDT) TSH, Sensitive 0.9 0.3 - 4.2 mIU/L 05/30/2024 3:10 PM CDT OWAT Blood (Blood, Venous) 05/30/2024 2:40 PM CDT 05/30/2024 2:41 PM CDT Reid Garcia M.D. LAB BLOOD ADD-ON Performing Organization Address City/[facility]/ZIP Co de Phone Number [facility] [address] [address], [facility] OWAT [facility] [address] [place] [address] * (ABNORMAL) Basic Metabolic Panel (05/30/2024 2:40 [...] CDT Reid Garcia M.D. LAB BLOOD ADD-ON [facility] [address] [place] [address], [facility] OWAT [facility] [address] [place] [address] * SARS CoV-2, Influenza A/B, PCR (05/30/2024 [...] test using the Xpert Xpress SARS-CoV-2/Flu/RSV assay ([employer] performed on the TagSeats DX systems has received Emergency Use Authorization (EUA) by the U.S. Food and Drug Administration. Performance characteristics were verified by [facility] in a manner consistent with CLIA requirements. Fact sheets for this Emergency Use Authorization (EUA) assay can be found at the following links: For Healthcare Providers: https://www.fda.gov/media/567810/download For Patients: https://www.fda.gov/media/451689/download Specimen Source Swab, Nasopharynx 05/30/2024 2:49 PM CDT OW Swab (Nasopharynx) 05/30/2024 2:31 PM CDT 05/30/2024 2:49 PM CDT Reid Garcia M.D. LAB MICROBIOLOGY - G [facility] ORDERABLES [facility] [address] [place] [address], [facility] OWAT [facility] [address] [place] [address] * ThinPrep Screen HPV Reflex (08/24/2011 9:42 AM SALES PROMOTER) Interpretation [id number] POWERCHART [facility] See Comment POWERCHART Comment: A. ??ThinPrep Pap Test Screen (Cervical/Endocervical HPV Reflex): Satisfactory for evaluation. Negative for intraepithelial lesion or malignancy. [facility] See Comment POWERCHART Comment: Report electronically signed by NIXON Jaime(ASCP) 08/29/2011 13:51 Interpreted by: NIXON Dolan(ASCP) [facility] See Comment POWERCHART Comment: A. ??ThinPrep Pap Test Screen (Cervical/Endocervical HPV Reflex): Received cloudy specimen in ThinPrep vial. Test Performed by: [facility] Dpt of Lab Med and Pathology [address] [place] [address] Nurse Staff Community Health: Omi Doyle III, M.D. Cervix/Endocervix 08/24/2011 9:42 AM SALES PROMOTER Kings Drake Jr., M.D. LAB PAP PATHDX ORDERABLES POWERCHART from Last 3 Months or Most Recently Relevant to Health Maintenance Care Teams Life Assurance Representative Relationship Specialty Start Date End Date Elsewhere, Pcp PCP - General Family Medicine 10/08/20
--- OUTSIDE RECORDS SUMMARY | 2024-06-14 12:55 | XMS_ITS | Clinical Summary ---
Author Organization [facility] Address [place], [place] [address] Care Team Providers Care Box Sealing Inspector Name Role Phone Kristofer Ladd Primary Care Provider Allergies Active Allergy Reactions Criticality Noted Date Comments Iodinated Contrast Media Hives 05/19/2007 Gadolinium-Containing Contrast Media Other - Describe In Comment Field 08/24/2011 Medications Medication Sig Dispensed Refills Start Date End Date Status codeine-guaiFENesin (ROBITUSSIN AC) 10-100 mg/5 mL liquidIndications:F melissa-like symptoms Take 10 mL by mouth every 4 hours if needed for Cough. Max dose 60 mL per 24 hrs. 240 mL 12/24/2019 Active albuterol HFA 90 mcg/actuation inhalerIndications: Flu-like symptoms Inhale 2 Puffs by mouth 4 times daily if needed. 1 Inhaler 1 12/24/2019 Active tiZANidine (ZANAFLEX) 4 mg tabletIndications:A cute right-sided low back pain without sciatica Take 1 tablet by mouth every 6 hours if needed for Muscle Spasm. 20 tablet 07/09/2020 Active baclofen (LIORESAL) 10 mg tabletIndications:L eft-sided chest wall pain,Mid back pain on left side Take 1 Tablet (10 mg) by mouth 2 times daily if needed for Other (Specify) (muscle pain). 10 Tablet 12/31/2020 Active Additional Information Patient not taking.Reported on 06/25/2022 omeprazole (PRILOSEC) 40 mg Delayed-Release capsuleIndications: Other chest pain Take 1 Capsule (40 mg) by mouth once daily. 30 Capsule 06/13/2021 Active ibuprofen (ADVIL; MOTRIN) 600 mg tabletIndications:O ther acute pericarditis Take 1 Tablet (600 mg) by mouth 4 times daily if needed. Maximum of 3200 mg in 24 hours. 40 Tablet 06/13/2021 Active oxyCODONE (ROXICODONE) 5 mg immediate release tabletIndications:O ther acute pericarditis Take 1 Tablet (5 mg) by mouth every 6 hours if needed for Pain. 4 Tablet 06/13/2021 Active meclizine (ANTIVERT) 25 mg tabletIndications:P eripheral vertigo, unspecified laterality Take 1 Tablet (25 mg) by mouth 3 times daily if needed for Vertigo. 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 Migraine, unspecified, witho ut mention of intractable migraine without mention of status migrainosus 06/24/2011 Helicobacter pylori (H. pylori) 12/23/2010 Other specified bacterial intestinal infections 12/23/2010 Immunizations Name Administration Dates Next Due Influenza, IIV3 (Age >=3 years) 11/16/2011 Tdap 11/16/2011 Family History Medical History Relation Name Comments GI Disease Maternal Aunt gallbladder pr oblems GI Disease Maternal Grandmother gallbla dder problems GI Disease Mother Christina Wren gallbladder pr oblems Relation Name Status Comments Brother Alive Father Alive Maternal Aunt Maternal Grandfather Alive Maternal Grandmother Alive Mother Christina Wren Alive Paternal Grandfather Paternal Grandmother Alive Sister Alive Son Alive Social History Tobacco Use Types Packs/Day Years Used Date Smoking Tobacco: Every Day Cigarettes Last attempted to quit: 03/25/2013 Smokeless Tobacco: Never Tobacco Cessation:Counseling Given: Yes Comments:trying to cut back Alcohol Use Standard Drinks/Week Comments Yes 0 (1 standard drink = 0.6 oz pur e alcohol) Rare Sex and Gender Information Value Date Recorded Sex Assigned at Not on file Gender Identity Not on file Sexual Orientation Not on file Obstetrics History Para Term AB IAB SAB Ectopic Multiple Livin g Live Births 5 3 3 3 1 Date Outcome GA Total Labor Labor/2nd/3rd Weight Sex Type Anes PTL Sofia A1 A5 Name Clin Comments:System [facility]. Please review and update details. Term 2006 Term 37w 0d 36h 00m/ 2.58 kg (5 lb 11 oz) M Vag Epidur al Livin g Armaan peters Delivery Location:[facility] 2011 Term Comments:System [facility] k[facility]. Please review and update details. Comments blood type A Positive Last Filed Vital Signs Vital Sign Reading Time Taken Comments Blood Pressure 118/99 09/22/2023 12:00 AM HEARING AID SPECIALIST Pulse 77 09/22/2023 12:00 AM HEARING AID SPECIALIST Temperature 36.8 ??C (98.3 ??F) 09/21/2023 10:[address] Respiratory Rate 20 09/21/2023 10:22 PM HEARING AID SPECIALIST Oxygen Saturation 97% 09/22/2023 12:00 AM HEARING AID SPECIALIST Inhaled Oxygen Concentration - - Weight 99.8 kg (220 lb) 09/21/2023 10:22 PM HEARING AID SPECIALIST Height 157.5 cm (5' 2) 09/21/2023 10:22 PM HEARING AID SPECIALIST Body Mass Index 40.24 09/21/2023 10:22 PM HEARING AID SPECIALIST Plan of Treatment Health Maintenance Due Date Last Done Comments Depression screening for age 12+ 1998 BMI (ht and wt on same day) for age 18+ 01/03/2004 Hepatitis C screening for age 18-79 01/03/2004 Pap test for age 21-65 06/29/2015 2 (Completed outside of [facility]), 12/26/2007, 05/11/2007, Additional history exists Tetanus booster 11/16/2021 11/16/2011, 11/16/2011 COVID-19 vaccine series ( season) 2023 Influenza for age 9-49 06/16/2024 11/16/2011 Tdap Completed 11/16/2011 HIV for age 15-65 Completed 11/22/2013, 12/17/2007 Pneumococcal series for age 6-64 Aged Out No longer eligible based on patient's age to complete this topic Procedures Procedure Name Priority Date/Time Associated Diagnosis Comments ANTI HIV 1/2 Routine 11/22/2013 3:53 PM HEARING AID SPECIALIST Supervision of other normal SSIS ARCHITECT THIN PREP PAP SCREEN IMAGED Routine 12/26/2007 2:52 PM CDT Screening Malignant Neoplasms Cervix from Last 3 Months or Most Recently Relevant to Health Maintenance Results * ANTI HIV 1/2 [68909.0] (11/22/2013 3:53 PM HEARING AID SPECIALIST) ANTI HIV 1/2 Non-reacti ve [facility] Blood specimen (specimen) BLOOD SPECIMEN / Unknown 11/22/2013 3:53 PM HEARING AID SPECIALIST 11/22/2013 3:47 PM HEARING AID SPECIALIST Tamera Alexander MD SEND OUTS [facility] INTERNAL ZIP [address] [place] [address] * SSIS ARCHITECT THIN PREP PAP SCREEN IMAGED (12/26/2007 2:52 PM CDT) Pathologist [facility] CYTOLOGY ??CYTOPATHOLOGY REPORT ??[employer] ?? Status: Final Report ? [id number] ?? CLINICAL INFORMATION ?LMP ? : 06/2007 ?Previous Pap Date ? : 05/11/07 ?Previous PAP Dx ? : Negative for intraepithelial lesion or ?malignancy. ?Previous [place]/bx date : None ?Previous Colposcopy/Bx: None ?Hormone Usage ? : None ?Menstrual Status ?: ?Appearance of Cervix ??: NL ?[place]/Bx done today ?: No ?HPV Request ? : Reflex HPV test if PAP Dx ASCUS ?? SPECIMEN SOURCE ?: Cervical/vaginal ThinPrep Vial, screening ?? SPECIMEN ADEQUACY ?: Satisfactory for evaluation No endocervical ?component seen in a patient. ? INTERPRETATION/RES ULT: ?Negative for intraepithelial lesion or malignancy. ? Cytology 1st Screener : ??kek ?? Signed by: ? kek ?? This specimen was screened by the FDA approved ThinPrep Imaging ?? System and manually reviewed. ?? NOTE: The Pap test is a screening technique, not a diagnostic ?? procedure. It is used primarily to screen for squamous cancers and ?? precursor lesions. Published studies have shown that it is subject to ?? both false negative and false positive results. The pap test should ?? not be used as the sole means to diagnose or exclude pre-malignant and ?? malignant lesions. ?? COLLECTED: 12/26/07 ?? ACCESSIONED: 12/26/07 ?? SIGNED: 12/31/07 [facility] Cervical (Cervical) 12/26/2007 2:52 PM CDT 12/26/2007 2:49 PM CDT Tamera Alexander MD PATHOLOGY/CYTOLOGY [facility] INTERNAL ZIP [phone] [address] from Last 3 Months or Most Recently Relevant to Health Maintenance Advance Directives * Full Code (Latest Code Status on File) Date Activated Date Inactivated Comments 01/22/2019 11:48 PM 01/23/2019 4:50 PM * Full Code Date Activated Date Inactivated Comments 02/20/2012 7:00 AM 02/20/2012 3:36 PM Care Teams Box Sealing Inspector Relationship Specialty Start Date End Date Kristofer Ladd MBBS [address] [place] [address] FABIENNE Grider [id number] PCP - General Family Practice 12/24/19
--- OUTSIDE RECORDS SUMMARY | 2024-06-14 12:55 | XMS_ITS | Referral Summary ---
Author Organization [facility] Address [address] [place] [address] Care Team Providers Care Sas Etl Developer Name Role Phone Elsewhere, Pcp Primary Care Provider Unavailabl e Source Comments Patient records contain information from all sites at [facility]. For routine questions regarding patient records, call [phone] during business hours, M-F 8:00 AM - 5:00 PM Central Time. Record requests for emergency care only can be directed to [phone] at any time.[facility] Encounters Date Type Department Care Team Description 05/30/2024 2:33 PM CDT - 05/30/2024 11:59 PM CDT Hospital Encounter Department of Laboratory Medicine in [place], [place] [address] [phone] Reid Garcia M.D. Malaise (Concern For Covid-19) Discharge Disposition: Home or Self Care 05/30/2024 2:00 PM CDT Office Visit Department of Family Medicine, [facility], in [place], [place] [address] [phone] Reid Garcia M.D. Malaise (Concern For Covid-19) (Primary Dx) 05/30/2024 Nurse Triage Department of Community Internal Medicine in [place], [place] [address] [place] [address] River Danielle R.N. Fatigue; Numbness [...] In the past 12 months has e [employer], gas, oil, or water company threatened to [...] week 10/19/2021 How often do you attend [facility] or yazdanism services? More than 4 times per year 10/19/2021 Do you belong to any clubs o r organizations such as baptism groups, unions, fraternal or athletic groups, or [...] Answer Date Recorded PHQ-2 Score 0 05/30/2024 [facility] of Occupat ional Health - [...] your living situation today? [facility] 05/30/2024 Education Answer Date [...] T Respiratory Rate 20 10/03/2022 3:19 PM LEAD ENTERPRISE ARCHITECT Oxygen Saturation 97% 10/03/2022 3:19 PM LEAD ENTERPRISE ARCHITECT Inhaled Oxygen Concentration - - Weight 106 [...] SCREEN HPV REFLEX Routine 08/24/2011 9:42 AM LEAD ENTERPRISE ARCHITECT from Last 3 Months or Most Recently Relevant to Health Maintenance Results * (ABNORMAL) CBC with Differential, Blood (05/30/2024 2:40 PM CDT) [facility] Hemoglobin 10.7(L) 11.6 - 15.0 g/dL 05/30/2024 [...] CDT Reid Garcia M.D. LAB BLOOD ADD-ON [facility] [address] [place] [address], [place] OWAT [facility] [place] [address] [place] [address] * S-TSH (Thyroid-Stimulating Hormone - Sensitive) (05/30/2024 2:40 PM CDT) TSH, Sensitive 0.9 0.3 - 4.2 mIU/L 05/30/2024 3:10 PM CDT OWAT Blood (Blood, Venous) 05/30/2024 2:40 PM CDT 05/30/2024 2:41 PM CDT Reid Garcia M.D. LAB BLOOD ADD-ON [facility] [address] [place] [address], [place] OWAT [facility] [place] [address] [place] [address] * (ABNORMAL) Basic Metabolic Panel (05/30/2024 2:40 [...] CDT Reid Garcia M.D. LAB BLOOD ADD-ON [facility] [address] [place] [address], [facility] OWAT [facility] [place] [address] [place] [address] * SARS CoV-2, Influenza A/B, PCR (05/30/2024 2:31 PM CDT) [facility] Influenza A, PCR Undetected Undetected 05/30/20 3:29 PM CDT OWAT Comment:Influenza A viral RN A absent. Influenza B, PCR Undetected Undetected 05/30/20 3:29 PM CDT OWAT Comment:Influenza B viral RN A absent. SARS-Coronavirus -2, PCR Undetected Undetected 05/30/2024 3:29 PM CDT OWAT Comment: SARS-CoV-2 RNA absent. ?? ----ADDITIONAL INFORMATION---- This RT-PCR test using the Xpert Xpress SARS-CoV-2/Flu/RSV assay ([employer] performed on the GeneXZenprise DX systems has received Emergency Use Authorization (EUA) by the U.S. Food and Drug Administration. Performance characteristics were verified by [facility] in a manner consistent with CLIA requirements. Fact sheets for this Emergency Use Authorization (EUA) assay can be found at the following links: For Healthcare Providers: https://www.fda.gov/media/668244/download For Patients: https://www.fda.gov/media/759928/download Specimen Source Swab, Nasopharynx 05/30/2024 2:49 PM CDT OWAT Swab (Nasopharynx) 05/30/2024 2:31 PM CDT 05/30/2024 2:49 PM CDT Reid Garcia M.D. LAB MICROBIOLOGY - G ENERAL ORDERABLES [facility] [address] [place] [address], [place] OWAT [facility] [place] [address] [place] [address] * ThinPrep Screen HPV Reflex (08/24/2011 9:42 AM LEAD ENTERPRISE ARCHITECT) Interpretation [id number] POWERCHART HXThPrep Scrn [facility] See Comment POWERCHART Comment: A. ??ThinPrep Pap Test Screen (Cervical/Endocervical HPV Reflex): Satisfactory for evaluation. Negative for intraepithelial lesion or malignancy. HXThPrep Scrn [facility] See Comment POWERCHART Comment: Report electronically signed by NIXON Jaime(ASCP) 08/29/2011 13:51 Interpreted by: NIXON Dolan(ASCP) HX Spec [facility] See Comment POWERCHART Comment: A. ??ThinPrep Pap Test Screen (Cervical/Endocervical HPV Reflex): Received cloudy specimen in ThinPrep vial. Test Performed by: [facility] Dpt of Lab Med and Pathology [address] [place] [address] Spanish Language Lecturer: Omi Doyle III, M.D. Cervix/Endocervix 08/24/2011 9:42 AM LEAD ENTERPRISE ARCHITECT Kings Drake Jr., M.D. LAB PAP PATHDX ORDERABLES POWERCHART from Last 3 Months or Most Recently Relevant to Health Maintenance Care Teams Sas Etl Developer Relationship Specialty Start Date End Date Elsewhere, Pcp PCP - General Family Medicine 10/08/20
--- OUTSIDE RECORDS SUMMARY | 2024-06-14 12:55 | XMS_ITS | Encounter Summary ---
Author Organization [facility] Address [address] [place] [address] Care Team Providers Care Major Gifts Manager Name Role Phone Elsewhere, Pcp Primary Care Provider Unavailabl e Reason for Visit * Reason Comments Fatigue * Appointment Request (Routine) - Closed Specialty Diagnoses / Procedures Referred By Contbill t Referred To Contact Family Medicine Referral ID Status Reason Start Date Expiration Date Visits Re quested Visits Authorized [id number] Closed 05/30/2024 05/30/2025 1 1 Encounter Details Date Type Department Care Team (Late st Contact Info) Description 05/30/2024 2:00 PM CDT Office Visit Department of Family Medicine, [facility], in [place], [place] [address] [phone] Reid Garcia M.D. [address] [phone] Malaise (Concern For Covid-19) (Primary Dx) Social History Tobacco Use Types Packs/Day Years Used Date Smoking Tobacco: Some Days Cigarettes Smokeless Tobacco: Never Tobacco Cessation:Ready to Q uit: Not Asked; Counseling Given: Not Answered Alcohol Use Standard Drinks/Week Comments Yes 0 (1 standard drink = 0.6 oz pur e alcohol) special occasions [facility] Utilities Answer Date Recorded In the [...] How often do you attend chur or buddhist services? More than 4 times per year 10/19/2021 Do you belong to any clubs o r organizations such as shinto groups, unions, fraternal or athletic groups, or [...] Answer Date Recorded PHQ-2 Score 0 05/30/2024 [employer] [facility] Occup[facility] ional Health - Occupational Stress [...] your living situation today? I have a [facility] place to live 05/30/2024 Education Answer Date [...] CDT Reid Garcia M.D. LAB BLOOD ADD-ON [facility] [address] [place] [address], [facility] in [place] [address] [place] [address] * (ABNORMAL) Basic Metabolic Panel (05/30/2024 2:40 [...] CDT Reid Garcia M.D. LAB BLOOD ADD-ON [facility] [address] [place] [address], [facility] in [place] [address] [place] [address] * (ABNORMAL) CBC with Differential, Blood (05/30/2024 [...] CDT Reid Garcia M.D. LAB BLOOD ADD-ON [facility] [address] [place] [address], [facility] [place] [address] [place] [address] * SARS CoV-2, Influenza A/B, PCR (05/30/2024 [...] test using the Xpert Xpress SARS-CoV-2/Flu/RSV assay ([employer] performed on the GeneClarityAd DX systems has received Emergency Use Authorization (EUA) by the U.S. Food and Drug Administration. Performance characteristics were verified by [facility] in a manner consistent with CLIA requirements. Fact sheets for this Emergency Use Authorization (EUA) assay can be found at the following links: For Healthcare Providers: https://www.fda.gov/media/431756/download For Patients: https://www.fda.gov/media/346424/download Specimen Source Swab, Nasopharynx 05/30/2024 2:49 PM CDT OWAT Swab (Nasopharynx) 05/30/2024 2:31 PM CDT 05/30/2024 2:49 PM CDT Reid Garcia M.D. LAB MICROBIOLOGY - G ENERAL ORDERABLES [facility] [address] [place] [address], [facility] in [place] [address] [place] [id number] documented in this encounter Visit Diagnoses Diagnosis Malaise (Concern For Covid-19)- Primary documented in this encounter Additional Health Concerns Infection Onset Date Last Indicated Resolved Time COVID19 Pending 05/30/2024 05/30/2024 05/30/2024 3 :29 PM CDT documented as of this encounter Care Teams Major Gifts Manager Relationship Specialty Start Date End Date Elsewhere, Pcp PCP - General Family Medicine 10/08/20 documented as of this encounter
--- OUTSIDE RECORDS SUMMARY | 2024-06-14 12:55 | XMS_ITS ---
Author Organization [facility] Address [address] [place] [address] Care Team Providers Care Epic Prelude Analyst Name Role Phone Unavailable Unavailable Unavailable Surgery Details Not on file Complications Check Surgery Details section. Procedure Estimated Blood Loss Check Surgery Details section. Procedure Findings Check Surgery Details section. Procedure Specimens Taken Check Surgery Details section.
--- OUTSIDE RECORDS SUMMARY | 2024-06-14 12:55 | XMS_ITS | Encounter Summary ---
Author Organization [facility] Address [address] [place] [address] Care Team Providers Care Health Therapist Name Role Phone Elsewhere, Pcp Primary Care Provider Unavailabl e Encounter Details Date Type Department Care Team (Latest Contact Info) Description 05/30/2024 2:33 PM CDT - 05/30/2024 11:59 PM CDT Hospital Encounter Department of Laboratory Medicine in [place], [place] [address] [phone] Reid Garcia M.D. [address] [phone] Malaise (Concern For Covid-19) Discharge Disposition: Home or Self Care Social History Tobacco Use Types Packs/Day Years Used Date Smoking Tobacco: Some Days Cigarettes Smokeless Tobacco: Never Alcohol Use Standard Drinks/Week Comments Yes 0 (1 standard drink = 0.6 oz pur e alcohol) special occasions [facility] Utilities Answer Date Recorded In the past 12 months has [facility] [employer], gas, oil, or water [employer] threatened to shut off services in your [...] any clubs o r organizations such as zoroastrian groups, unions, fraternal or athletic groups, or [...] Answer Date Recorded PHQ-2 Score 0 05/30/2024 [facility] of Occupat ional Health - Occupational Stress [...] living situation today? I have a [facility] place to live 05/30/2024 Education Answer Date [...] chewable tablet 500 mg as needed. 11/11/2011 ibuprofen (ADVIL,MOTRIN) 600 mg tablet TAKE 1 TABLET(600 MG) BY MOUTH THREE TIMES DAILY FOR 14 DAYS 90 tablet 3 09/13/2021 topiramate (TOPAMAX) 100 mg tablet Take 1 tablet (100 mg total) by mouth 2 (two) times a day. 60 tablet 11 08/30/2023 gabapentin (Neurontin) 300 mg capsule Take 1 capsule (300 mg total) by mouth 3 (three) times a day. 90 capsule 05/30/2024 azithromycin (Zithromax) 250 mg tablet Take 2 [...] CDT Reid Garcia M.D. LAB BLOOD ADD-ON [facility] [address] [place] [address], [place] [facility] [facility] [place] [address] [place] [address] * (ABNORMAL) Basic Metabolic Panel (05/30/2024 2:40 [...] CDT Reid Garcia M.D. LAB BLOOD ADD-ON [facility] [address] [place] [address], [facility] in [place] [address] [place] [address] * (ABNORMAL) CBC with Differential, Blood (05/30/2024 [...] CDT Reid Garcia M.D. LAB BLOOD ADD-ON [facility] [address] [place] [address], [facility] in [place] [address] [place] [address] documented in this encounter Visit Diagnoses Diagnosis Malaise (Concern For Covid-19) documented in this encounter Additional Health Concerns Infection Onset Date Last Indicated Resolved Time COVID19 Pending 05/30/2024 05/30/2024 05/30/2024 3 :29 PM CDT documented as of this encounter Care Teams Health Therapist Relationship Specialty Start Date End Date Elsewhere, Pcp PCP - General Family Medicine 10/08/20 documented as of this encounter
--- OUTSIDE RECORDS SUMMARY | 2024-06-14 12:55 | XMS_ITS | Encounter Summary ---
Author Organization [facility] Address [address] [place] [address] Care Team Providers Care Mat Tester Name Role Phone Elsewhere, Pcp Primary Care Provider Unavailabl e Reason for Visit * Reason Onset Date Comments Fatigue 05/30/2024 Numbness 05/30/2024 Encounter Details Date Type Department Care Team (Late st Contact Info) Description 05/30/2024 Nurse Triage Department of [facility] in [place], [place] [address] [place] [id number] River Danielle R.N. [address] [place] [phone] Fatigue; Numbness Social History Tobacco Use Types Packs/Day Years Used Date Smoking Tobacco: Some Days Cigarettes Smokeless Tobacco: Never Alcohol Use Standard Drinks/Week Comments Yes 0 (1 standard drink = 0.6 oz pur e alcohol) special occasions [facility] Utilities Answer Date Recorded In the past 12 months has [facility] [employer], gas, oil, or water [employer] threatened to shut off services in your [...] week 10/19/2021 How often do you attend [facility] or baptism services? More than 4 times per year 10/19/2021 Do you belong to any clubs o r organizations such as zoroastrianism groups, unions, fraternal or athletic groups, or [...] Date Recorded PHQ-2 Score 0 05/30/2024 [facility] of Occupat ional Health [...] your living situation today? I have a [facility] place to live 05/30/2024 Education Answer Date [...] present > 24 hours Protocols used: Neurologic [id number] Care Advice Patient/Caregiver understands and will follow care advice?: Yes, able to teach back Neurologic [id number] Nurse River Gu May 30, 2024 10:17 AM Care Advice SEE PCP WITHIN 3 DAYS: * You need to be seen within 2 or 3 days. * PCP VISIT: Call your doctor (or OFFICE ANALYST/PA) during regular office hours and make an [...] on filedocumented in this encounter Care Teams Mat Tester Relationship Specialty Start Date End Date Elsewhere, Pcp PCP - General Family Medicine 10/08/20 documented as of this encounter
== END 2024-06-14 12:51 | disposition home or self-care (01) ==
PROVIDERS: Visit Provider Family Medicine
DX: D50.9 Iron deficiency anemia, unspecified (principal); R20.0 Anesthesia of skin; R07.89 Other chest pain
CPT/HCPCS: 82607; 82728; 82746; 85651; 86140

== ENCOUNTER 2024-07-09 09:30 | Outpatient (RCR) | payer BC, SELFPAY ==
--- NOTE | 2024-06-26 13:24 | URNOTE ---
Injectafer ([id number]) has been approved 750mg x 2 doses, 06/25/2024-07/29/2024. Auth #[id number]
[2024-07-02 09:16] VITALS: BP 120/78; PULSE 75; RESP 16; TEMP 36.3; O2SAT 99
[2024-07-02] MEDS: FERRIC CARBOXYMALTOSE 750 MG in 0.9 % SODIUM CHLORIDE 250 ml 250 ML 1060 MG IVPB (09:59)
[2024-07-02 10:23] VITALS: BP 108/70; PULSE 72; RESP 16; TEMP 36.4; O2SAT 97
[2024-07-02 10:56] VITALS: BP 97/67; PULSE 67; RESP 16; TEMP 36.9; O2SAT 96
[2024-07-09 09:37] VITALS: BP 107/73; PULSE 88; RESP 16; TEMP 36.4; O2SAT 98
[2024-07-09] MEDS: FERRIC CARBOXYMALTOSE 750 MG in 0.9 % SODIUM CHLORIDE 250 ml 250 ML 550 MG IVPB (10:27)
[2024-07-09] MEDS: 0.9 % SODIUM CHLORIDE 250 ml IV (10:27)
[2024-07-09 11:01] VITALS: BP 93/64; PULSE 72; RESP 16; TEMP 36.4; O2SAT 95
[2024-07-09 11:20] VITALS: BP 103/72; PULSE 71
[2024-07-09 11:37] VITALS: BP 100/70; PULSE 70; RESP 12; TEMP 36.5; O2SAT 97
== END 2024-12-29 23:59 | disposition home or self-care (01) ==
LOC: CCIC 09:30
PROVIDERS: PCP Family Medicine; Referring Provider Family Medicine; Visit Provider Clinical Nurse Specialist
DX: D50.9 Iron deficiency anemia, unspecified (principal)
CPT/HCPCS: 96365; J1439; J7050

== ENCOUNTER 2024-07-11 22:23 | Emergency (ER) | payer BC, SELFPAY ==
[2024-07-11 22:42] VITALS: BP 130/84; PULSE 89; RESP 20; TEMP 37; O2SAT 99; BMI 41.2
--- NOTE | 2024-07-11 23:03 | ED.GENADULT ---
HPI - General Adult General Time Seen by Provider: 23:03 Date Seen: 07/11/24 Chief complaint: Rib Pain Stated complaint: Fall this am, short of breath Time Seen by Provider: 07/11/24 23:03 Source: patient, family and RN notes reviewed Mode of arrival: ambulatory Limitations: no limitations History of Present Illness HPI narrative: Tess is a very pleasant 39-year-old female with history of iron deficiency anemia, status post iron infusions as well as pericarditis per her chart who presents for injury secondary to a fall. Tess was walking her 2 dogs this morning and they saw a rabbit and took off. She was pulled onto the ground and woke up a number of feet away from where she initially fell. She does not remember hitting her head but since that time she has had neck pain on the right side of her neck significant chest pain to the right side of her chest, with difficulty breathing as well as difficulty walking on her right leg. She notes that the chest pain has actually worsened throughout the day. She has had a cough and there has been no blood but she is coughing up mucus. She denies blood thinners, lung problems, fevers or chills. Tess states that it hurts to take a deep breath. She also notes bruises to her right shoulder but is able to move her arms without difficulty. She also has a bruise on her right thigh. When asked about her breathing she notes it is difficult to take a deep breath but she denies shortness of breath. . Patient had not disclose loss of consciousness to nursing staff. Positive loss of consciousness is confirmed approximately 10 minutes after we are talking. At that point I do call a TTA Related Data Home Medications ?Medication ?Instructions ?Recorded ?Confirmed topiramate 100 mg tablet 50 mg PO BID 06/07/24 07/11/24 ibuprofen 200 mg tablet (IBU-200) 400 mg PO QAM 06/24/24 07/11/24 gabapentin 300 mg capsule 300 mg PO 3XD 07/11/24 07/11/24 Previous Rx's ?Medication ?Instructions ?Recorded furosemide 40 mg tablet 40 mg PO DAILY #30 tabs 06/19/24 Allergies Allergy/AdvReac Type Severity Reaction Status Date / Time Iodinated Contrast Media Allergy Verified 07/11/24 22:51 Review of Systems Status of ROS: Reports: 10 or more systems reviewed and unremarkable except as noted in History and below Const: Denies: fever, chills or fatigue Eyes: Denies: change in vision ENMT: Reports: neck pain (On the right side); Denies: throat pain, throat swelling, difficulty swallowing or nasal congestion Cardio: Reports: chest pain (Chest wall pain right anterior) and lightheadedness; Denies: palpitations, edema, swelling of feet/ankles or shortness of breath with exertion Resp: Denies: shortness of breath, cough or wheezing GI: Denies: abdominal pain, nausea, vomiting or difficulty swallowing : Denies: painful urination Musculo: Reports: neck pain (On the right side); Denies: back pain Integ/Breast: Reports: redness (The right lower leg and right thigh) Neuro: Reports: headache; Denies: numbness in extremities Endo: Denies: fatigue Allergy/Immuno: Denies: throat swelling or wheezing [facility] Medical History Iron deficiency anemia ?D50.9 - Iron deficiency anemia, unspecified (ICD-10) Social History Smoking Status: Never smoker Second hand tobacco smoke exposure: No How often do you have a drink containing alcohol: never AUDIT-C Alcohol total score: 0 Non-prescribed substance use: denies use Exam Narrative: Exam Narrative: Airway open Breathing is shallow and very guarded. Circulation intact with no active bleeding Disability GCS of 15. Pupils equal round and reactive. No obvious deformities. Patient is presenting with head that is atraumatic. I do not palpate any step-offs or edema. Patient has cervical spine tenderness in the right paraspinous musculature. Slightly over the cervical midline at approximately C3 and 4. Face is symmetrical. Oral cavity moist mucous membranes. Heart with regular rate and rhythm and lungs are with clear breath sounds although they are rather distance as patient is having a hard time with deep breathing. Tenderness noted over the right anterior lateral ribs just below the right breast. I do not see any ecchymosis or skin changes. No CVA tenderness with percussion. Abdomen soft. On her right upper shoulder she is showing me erythema and some ecchymosis. However she is able to move her shoulder and upper arm without difficulty. She also has a baseball size area of edema and superficial abrasion on the right superior aspect of the lower leg anterior to the fibula. Palpation over this area is very tender. Palpation down back does not yield any tenderness. Const: Vital Signs, click to edit/add: Vital Signs - 24 hr 07/11/24 22:42 07/11/24 23:51 07/12/24 00:01 Temperature 98.6 F Pulse Rate 81 77 Pulse Rate [Right Pulse Oximeter] 89 Respiratory Rate 20 18 18 Blood Pressure 102/66 105/88 Blood Pressure [Ri ght Upper Arm] 130/84 Pulse Oximetry 99 94 96 Oxygen Delivery Me thod Room Air 07/12/24 00:16 07/12/24 00:25 Temperature 98.6 F 98.6 F Pulse Rate Pulse Rate [Right Pulse Oximeter] 80 80 Respiratory Rate 20 20 Blood Pressure Blood Pressure [Ri ght Upper Arm] 124/74 124/74 Pulse Oximetry 99 Oxygen Delivery Me thod Room Air Documenting provider has reviewed patient's vital signs: yes Course Course ED Course: At this time patient states that she probably lost consciousness as she remembers falling and then waking up approximately 20 ft away from the original location. Will obtain head CT, cervical spine given the new neck pain as well as chest x-ray and x-ray of the right lower extremity. Initially she hesitates and I do state that the most important test today would probably be the chest x-ray and she has the option of declining the others. She states that no she would like to proceed with everything. She declines injection of Toradol at this time stating she does not like needles. Reevaluation(s) Reevaluation #1: Patient remained stable in the emergency room. Her imaging studies negative. Vital Signs Vital signs: Initial Vital Signs Temperature 98.6 F 07/11/24 22:42 Temperature Source Temporal Artery Scan 07/11/24 22:42 Pulse Rate 89 07/11/24 22:42 Respiratory Rate 20 07/11/24 22:42 Blood Pressure 130/84 07/11/24 22:42 Blood Pressure Mean 99 07/11/24 22:42 Blood Pressure Position Sitting 07/11/24 22:42 Pulse Oximetry 99 07/11/24 22:42 Oxygen Delivery Method Room Air 07/11/24 22:42 Vital Signs Temperature 98.6 F 07/11/24 22:42 Pulse Rate 89 07/11/24 22:42 Respiratory Rate 20 07/11/24 22:42 Blood Pressure 130/84 07/11/24 22:42 Pulse Oximetry 99 07/11/24 22:42 Oxygen Delivery Method Room Air 07/11/24 22:42 Temperature 98.6 F 07/12/24 00:25 Pulse Rate 80 07/12/24 00:25 Respiratory Rate 20 07/12/24 00:25 Blood Pressure 124/74 07/12/24 00:25 Pulse Oximetry 99 07/12/24 00:16 Oxygen Delivery Method Room Air 07/12/24 00:16 Medical Decision Making MDM Narrative Medical decision making narrative: 1. Cervical strain-CT is negative. Recommend ice as needed. 2. Rib injury-I did state to patient that she still may have fractures not detected by the chest x-ray but it would not change our treatment plan. We talked about using ice to this area. Ibuprofen 600 mg p.o. every 8 hours for 2 days is suggested. I have also given her a small amount of [place] 5/325 1-2 tabs p.o. q.4-6 hours p.r.n. pain 12. With no refills. Any further reach feels would need to go through her primary MD. I did state that this is like the caused her constipation and she should consider I stool softener. Finally demonstrated splinting and the importance of deep breathing. 3. Closed head injury-patient describes waking up away from the site of the initial fall. Fortunately CT does not show any evidence of bleed or skull fracture. 4. Right lower leg injury-no evidence of bony injury. Patient describes disc comfort with dorsiflexion of the toes which would correspond to this particular muscle contraction. Recommend ice and pain medication as previously noted. 5. Disposition-home at this time. I did check [employer] and there have been no recent narcotic prescriptions. Patient denies history of narcotic or alcohol addictions. Recommend icing, light activity, sleeping in a recliner tonight. Return to the emergency room for worsening symptoms and as needed. Patient declined Toradol IM as well as p.o. ibuprofen in the ED. [place] was put in our [employer] vending machine. Medical Records Medical records reviewed: Yes I reviewed the patient's medical records Imaging Data CT scan - head: Attestation: I have reviewed the pertinent imaging results. My impression: No intracranial bleed. Radiologist's impression: CSF spaces: Within normal limits for age. Brain parenchyma: The blas-white differentiation is maintained. Mild right cerebellar ectopia. No sign of mass, hemorrhage, or midline shift. Skull base and calvarium: The visualized paranasal sinuses and mastoid air cells demonstrate no acute or significant findings. The visualized orbits are grossly unremarkable. No skull fractures. IMPRESSION: No acute intracranial abnormality. Cervical spine CT: Attestation: I have reviewed the pertinent imaging results. My impression: No obvious fractures Radiologist's impression: ertebrae: Straightening of the normal cervical lordosis, which may be due to muscle spasm or positioning. There are no fractures or suspicious bony lesions. Discs and facet joints: Disc spaces and facets are within normal limits. Extraspinal findings: Paraspinous soft tissues are unremarkable. IMPRESSION: No acute fracture or traumatic subluxation of the cervical spine. Ribs with chest x-ray: Attestation: I have reviewed the pertinent imaging results. My impression: I do not note any acute fractures or pneumothorax. Radiologist's impression: Mediastinum: The mediastinum is normal in appearance. The heart silhouette is normal in size and morphology. Lung: Both lungs are unremarkable in appearance. No sign of pleural effusion seen. No pneumothorax is identified. Ribs and bones: No definite acute rib fractures are identified in the visualized ribs. The remaining osseous structures are unremarkable for age. A radiographic marker is noted over the inferior right hemithorax, designating the site of maximal reported symptoms. Soft tissue: Unremarkable. Bilateral metallic nipple piercings are noted. IMPRESSION: 1. No acute cardiopulmonary disease is seen. No acute rib injuries noted. Tib-fib x-ray: Attestation: I have reviewed the pertinent imaging results. My impression: No acute fractures noted Radiologist's impression: Bone: No acute fractures or aggressive bone lesions are identified. Joint: The visualized knee and ankle joints are unremarkable. No significant joint effusion is seen. Soft tissue: Unremarkable. No radiopaque foreign bodies are seen. IMPRESSION: 1. No acute osseous injuries or abnormalities are noted. Discharge Plan Discharge Clinical Impression: Cervical strain, Closed head injury, Rib injury, Injury of leg, right Patient Disposition: Home, Self-Care Condition: Unchanged Additional Instructions: Ibuprofen 600 mg or 3 tablets of [id number] strength every 8 hours for the next 2 days. Please take with food. You may add [place] also known as Vicodin or hydrocodone/Tylenol for pain not relieved by ibuprofen. Please note that this does cause constipation and sedation. He should not use alcohol with this medication or should you be driving. [place] is given out through our in vending machine. We are unable to refill this medication. If you feel you are in need of further narcotic pain meds you will need to see your regular clinic or physician. Consider a stool softener to prevent constipation. Light activity at home. Ice to areas of discomfort. Spoke splinting as I talked about using a very firm pillow or a rolled up bed sheet when coughing or doing deep breathing exercises. Seek medical attention for fever, chills, worsening symptoms and as needed. Prescriptions: No Action ibuprofen [IBU-200] 200 mg tablet 400 mg PO QAM topiramate 100 mg tablet 50 mg PO BID gabapentin 300 mg capsule 300 mg PO 3XD furosemide 40 mg tablet 40 mg PO DAILY Qty: 30 1RF Follow Up/Referrals: Yuan Motta MD [Primary Care Provider] - Stand Alone Forms: Rets[employer] Info Instructions
--- NOTE | 2024-07-11 23:11 | CRLHL7_ITS ---
For Patients: As a result of the Century Cures Act, medical imaging exams and procedure reports are released immediately into your electronic medical record. You may view this report before your referring provider. If you have questions, please contact your health care provider. INDICATION: Trauma, fall. Loss of consciousness. TECHNIQUE: CT head without contrast. COMPARISON: None. FINDINGS: CSF spaces: Within normal limits for age. Brain parenchyma: The blas-white differentiation is maintained. Mild right cerebellar ectopia. No sign of mass, hemorrhage, or midline shift. Skull base and calvarium: The visualized paranasal sinuses and mastoid air cells demonstrate no acute or significant findings. The visualized orbits are grossly unremarkable. No skull fractures. IMPRESSION: No acute intracranial abnormality. Please note that all CT scans at this facility use dose modulation, iterative reconstruction, and/or weight-based dosing when appropriate to reduce radiation dose to as low as reasonably achievable. Dictated by Tru Flores MD @ 07/11/2024 11:48:48 PM (Electronically Signed)
--- NOTE | 2024-07-11 23:11 | CRLHL7_ITS ---
For Patients: As a result of the Cures Act, medical imaging exams and procedure reports are released immediately into your electronic medical record. You may view this report before your referring provider. If you have questions, please contact your health care provider. INDICATION: Tibia injury from Fall with difficulty standing TECHNIQUE: Tibia-fibula radiograph 4 views right COMPARISON: None FINDINGS: Bone: No acute fractures or aggressive bone lesions are identified. Joint: The visualized knee and ankle joints are unremarkable. No significant joint effusion is seen. Soft tissue: Unremarkable. No radiopaque foreign bodies are seen. IMPRESSION: 1. No acute osseous injuries or abnormalities are noted. Dictated by: Carlito White MD @ 07/11/2024 23:39:13 (Electronically Signed)
--- NOTE | 2024-07-11 23:11 | CRLHL7_ITS ---
For Patients: As a result of the Century Cures Act, medical imaging exams and procedure reports are released immediately into your electronic medical record. You may view this report before your referring provider. If you have questions, please contact your health care provider. INDICATION: Trauma, fall. Right-sided neck pain. TECHNIQUE: CT cervical spine without contrast. COMPARISON: None. FINDINGS: Vertebrae: Straightening of the normal cervical lordosis, which may be due to muscle spasm or positioning. There are no fractures or suspicious bony lesions. Discs and facet joints: Disc spaces and facets are within normal limits. Extraspinal findings: Paraspinous soft tissues are unremarkable. IMPRESSION: No acute fracture or traumatic subluxation of the cervical spine. Please note that all CT scans at this facility use dose modulation, iterative reconstruction, and/or weight-based dosing when appropriate to reduce radiation dose to as low as reasonably achievable. Dictated by Tru Flores MD @ 07/11/2024 11:51:13 PM (Electronically Signed)
--- NOTE | 2024-07-11 23:11 | CRLHL7_ITS ---
For Patients: As a result of the Cures Act, medical imaging exams and procedure reports are released immediately into your electronic medical record. You may view this report before your referring provider. If you have questions, please contact your health care provider. INDICATION: Chest wall injury from Fall with difficulty breathing TECHNIQUE: Chest radiograph, Rib radiographs 4 views right COMPARISON: 06/07/2024 FINDINGS: Mediastinum: The mediastinum is normal in appearance. The heart silhouette is normal in size and morphology. Lung: Both lungs are unremarkable in appearance. No sign of pleural effusion seen. No pneumothorax is identified. Ribs and bones: No definite acute rib fractures are identified in the visualized ribs. The remaining osseous structures are unremarkable for age. A radiographic marker is noted over the inferior right hemithorax, designating the site of maximal reported symptoms. Soft tissue: Unremarkable. Bilateral metallic nipple piercings are noted. IMPRESSION: 1. No acute cardiopulmonary disease is seen. No acute rib injuries noted. Dictated by Carlito White MD @ 07/11/2024 11:42:27 PM Dictated by: Carlito White MD @ 07/11/2024 23:42:32 (Electronically Signed)
--- OUTSIDE RECORDS SUMMARY | 2024-07-11 23:18 | XMS_ITS | Referral Summary ---
Author Organization [facility] Address [address] [place] [address] Care Team Providers Care Secondary School Registrar Name Role Phone Elsewhere, Pcp Primary Care Provider Unavailabl e Source Comments Patient records contain information from all sites at [facility]. For routine questions regarding patient records, call [phone] during business hours, M-F 8:00 AM - 5:00 PM Central Time. Record requests for emergency care only can be directed to [phone] at any time.[facility] Encounters Date Type Department Care Team Description 05/30/2024 2:33 PM CDT - 05/30/2024 11:59 PM CDT Hospital Encounter Department of Laboratory Medicine in [place], [place] [address] [phone] Reid Garcia M.D. Malaise (Concern For Covid-19) Discharge Disposition: Home or Self Care 05/30/2024 2:00 PM CDT Office Visit Department of Family Medicine, [facility], in [place], [place] [address] [phone] Reid Garcia M.D. Malaise (Concern For Covid-19) (Primary Dx) 05/30/2024 Nurse Triage Department of Community Internal Medicine in [place], [place] [address] [place] [address] River Danielle R.N. Fatigue; Numbness [...] chewable tablet 500 mg as needed. 11/11/2011 Ac tive ibuprofen (ADVIL,MOTRIN) 600 mg tablet TAKE 1 [...] times a day. 90 capsule 05/30/2024 Active Active Problems Problem Noted Date Diagnosed [...] 0.6 oz pur e alcohol) special occasions [facility] Utilities Answer Date Recorded In the past 12 months has [facility] [place], [employer], or water [employer] threatened to shut off services in your [...] How often do you attend chur or episcopalian services? More than 4 times per year 10/19/2021 Do you belong to any clubs o r organizations such as yazidi groups, unions, fraternal or athletic groups, or [...] Answer Date Recorded PHQ-2 Score 0 05/30/2024 [facility] - [...] Answer Date Recorded Employment status Unemployed/not in e paid workforce but seeking employment 05/30/2024 Housing Stability Answer Date Recorded What is your living situation today? I have a [facility] place to live 05/30/2024 Education Answer [...] T Respiratory Rate 20 10/03/2022 3:19 PM WOOD CABINETMAKER Oxygen Saturation 97% 10/03/2022 3:19 PM WOOD CABINETMAKER Inhaled Oxygen Concentration - - Weight 106 [...] SCREEN HPV REFLEX Routine 08/24/2011 9:42 AM WOOD CABINETMAKER from Last 3 Months or Most Recently [...] M.D. LAB BLOOD ADD-ON Performing Organization Address City/[facility]/RUST Co de Phone Number [facility] [address] [address], [facility] OWAT [facility] [place] [address] [place] [address] * S-TSH (Thyroid-Stimulating Hormone - Sensitive) (05/30/2024 2:40 PM CDT) [facility] Signature TSH, Sensitive 0.9 0.3 - 4.2 mIU/L 05/30/2024 3:10 PM CDT OW[facility] Blood (Blood, Venous) 05/30/2024 2:40 PM CDT 05/30/2024 2:41 PM CDT Reid Garcia M.D. LAB BLOOD ADD-ON Performing Organization Address City/[facility]/ZIP Co de Phone Number [facility] [address] [place] [address], [facility] OWAT [facility] [place] [address], [place] [address] * (ABNORMAL) Basic Metabolic Panel (05/30/2024 2:40 [...] CDT Reid Garcia M.D. LAB BLOOD ADD-ON [facility] [address] [place] [address], [facility] OWAT [facility] [place] [address] [place] [address] * SARS CoV-2, Influenza A/B, PCR (05/30/2024 [...] test using the Xpert Xpress SARS-CoV-2/Flu/RSV assay ([employer] performed on the GeneVuMedi systems has received Emergency Use Authorization (EUA) by the U.S. Food and Drug Administration. Performance characteristics were verified by [facility] in a manner consistent with CLIA requirements. Fact sheets for this Emergency Use Authorization (EUA) assay can be found at the following links: For Healthcare Providers: https://www.fda.gov/media/615619/download For Patients: https://www.fda.gov/media/337165/download Specimen Source Swab, Nasopharynx 05/30/2024 2:49 PM CDT OW[facility] Swab (Nasopharynx) 05/30/2024 2:31 PM CDT 05/30/2024 2:49 PM CDT Reid Garcia M.D. LAB MICROBIOLOGY - [facility] ORDERABLES [facility] [address] [place] [address], [facility] OWAT [facility] [place] [address] [place] [address] * ThinPrep Screen HPV Reflex (08/24/2011 9:42 AM WOOD CABINETMAKER) Interpretation [id number] POWERCHART HXThPrep Scrn Fnl-Martelle See Comment POWERCHART Comment: A. ??ThinPrep Pap Test Screen (Cervical/Endocervical HPV Reflex): Satisfactory for evaluation. Negative for intraepithelial lesion or malignancy. HXThPrep Scrn Cyto-Martelle See Comment POWERCHART Comment: Report electronically signed by NIXON Jaime(ASCP) 08/29/2011 13:51 Interpreted by: NIXON Dolan(ASCP) HX Spec Desc-Martelle See Comment POWERCHART Comment: A. ??ThinPrep Pap Test Screen (Cervical/Endocervical HPV Reflex): Received cloudy specimen in ThinPrep vial. Test Performed by: [facility] Dpt of Lab Med and Pathology [address] [place] [address] Overlock Sewing Machine Operator: Omi Doyle III, M.D. Cervix/Endocervix 08/24/2011 9:42 AM WOOD CABINETMAKER Kings Drake Jr., M.D. LAB PAP PATHDX ORDERABLES POWERCHART from Last 3 Months or Most Recently Relevant to Health Maintenance Care Teams Secondary School Registrar Relationship Specialty Start Date End Date Elsewhere, Pcp PCP - General Family Medicine 10/08/20
--- OUTSIDE RECORDS SUMMARY | 2024-07-11 23:18 | XMS_ITS | Encounter Summary ---
Author Organization [facility] Address [address] [place] [address] Care Team Providers Care Manager Product Marketing Name Role Phone Elsewhere, Pcp Primary Care Provider Unavailabl e Reason for Visit * Reason Comments Fatigue * Appointment Request (Routine) - Closed Specialty Diagnoses / Procedures Referred By Contbill t Referred To Contact Family Medicine Referral ID Status Reason Start Date Expiration Date Visits Re quested Visits Authorized [id number] Closed 05/30/2024 05/30/2025 1 1 Encounter Details Date Type Department Care Team (Late st Contact Info) Description 05/30/2024 2:00 PM CDT Office Visit Department of Family Medicine, [facility], in [place], [place] [address] [phone] Reid Garcia M.D. [address] [phone] Malaise (Concern For Covid-19) (Primary Dx) Social History Tobacco Use Types Packs/Day Years Used Date Smoking Tobacco: Some Days Cigarettes Smokeless Tobacco: Never Tobacco Cessation:Ready to Q uit: Not Asked; Counseling Given: Not Answered Alcohol Use Standard Drinks/Week Comments Yes 0 (1 standard drink = 0.6 oz pur e alcohol) special occasions [facility] Utilities Answer Date Recorded In the past [...] How often do you attend chur or jain services? More than 4 times per year 10/19/2021 Do you belong to any clubs o r organizations such as cheondoism groups, unions, fraternal or athletic groups, or [...] Answer Date Recorded PHQ-2 Score 0 05/30/2024 [facility] Occupat ional Health - Occupational [...] your living situation today? I have a [facility] place to live 05/30/2024 Education Answer [...] CDT Reid Garcia M.D. LAB BLOOD ADD-ON [facility] [address] [place] [address], [facility] OW[facility] [place] [address] [place] [address] * (ABNORMAL) Basic Metabolic Panel (05/30/2024 2:40 [...] CDT Reid Garcia M.D. LAB BLOOD ADD-ON [facility] [address] [place] [address], [facility] OW[facility] [place] [address] [place] [address] * (ABNORMAL) CBC with Differential, Blood (05/30/2024 [...] CDT Reid Garcia M.D. LAB BLOOD ADD-ON [facility] [address] [place] [address], [facility] OW[facility] [place] [address] [place] [address] * SARS CoV-2, Influenza A/B, PCR (05/30/2024 [...] test using the Xpert Xpress SARS-CoV-2/Flu/RSV assay ([employer] performed on the GeneDrybar DX systems has received Emergency Use Authorization (EUA) by the U.S. Food and Drug Administration. Performance characteristics were verified by [facility] in a manner consistent with CLIA requirements. Fact sheets for this Emergency Use Authorization (EUA) assay can be found at the following links: For Healthcare Providers: https://www.fda.gov/media/545923/download For Patients: https://www.fda.gov/media/298993/download Specimen Source Swab, Nasopharynx 05/30/2024 2:49 PM CDT OW[facility] Swab (Nasopharynx) 05/30/2024 2:31 PM CDT 05/30/2024 2:49 PM CDT Reid Garcia M.D. LAB MICROBIOLOGY - G ENERAL ORDERABLES [facility] [address] [place] [address], [facility] OW[facility] [place] [address] [place] [address] documented in this encounter Visit Diagnoses Diagnosis Malaise (Concern For Covid-19)- Primary documented in this encounter Additional Health Concerns Infection Onset Date Last Indicated Resolved Time COVID19 Pending 05/30/2024 05/30/2024 05/30/2024 3 :29 PM CDT documented as of this encounter Care Teams Manager Product Marketing Relationship Specialty Start Date End Date Elsewhere, Pcp PCP - General Family Medicine 10/08/20 documented as of this encounter
--- OUTSIDE RECORDS SUMMARY | 2024-07-11 23:18 | XMS_ITS ---
Author Organization [facility] Address [address] [place] [address] Care Team Providers Care Cloth Bleaching Range Back Tender Name Role Phone Unavailable Unavailable Unavailable Surgery Details Not on file Complications Check Surgery Details section. Procedure Estimated Blood Loss Check Surgery Details section. Procedure Findings Check Surgery Details section. Procedure Specimens Taken Check Surgery Details section.
--- OUTSIDE RECORDS SUMMARY | 2024-07-11 23:18 | XMS_ITS | Clinical Summary ---
Author Organization [facility] Address [place], [place] [address] Care Team Providers Care Steel Box Toe Inserter Name Role Phone Kristofer Ladd Primary Care [...] diabetes mellitus (GDM) 03/16/2014 , subsequent 03/25/2013 Overview (11/17/2013): transfer care from [place] at 36 weeks Need to recheck HIV/STD [...] Epidur al Livin g Armaan peters Delivery Location:[facility] 2011 Term Comments:System Genera kath. Please review and update details. Comments blood type A Positive Last Filed Vital Signs Vital Sign Reading Time Taken Comments Blood Pressure 118/99 09/22/2023 12:00 AM SUPERVISOR PUBLIC MESSAGE SERVICE Pulse 77 09/22/2023 12:00 AM SUPERVISOR PUBLIC MESSAGE SERVICE Temperature 36.8 ??C (98.3 ??F) 09/21/2023 10:[address] Respiratory Rate 20 09/21/2023 10:22 PM SUPERVISOR PUBLIC MESSAGE SERVICE Oxygen Saturation 97% 09/22/2023 12:00 AM SUPERVISOR PUBLIC MESSAGE SERVICE Inhaled Oxygen Concentration - - Weight 99.8 kg (220 lb) 09/21/2023 10:22 PM SUPERVISOR PUBLIC MESSAGE SERVICE Height 157.5 cm (5' 2) 09/21/2023 10:22 PM SUPERVISOR PUBLIC MESSAGE SERVICE Body Mass Index 40.24 09/21/2023 10:22 PM SUPERVISOR PUBLIC MESSAGE SERVICE Plan of Treatment Health Maintenance Due Date Last Done Comments Depression screening for age 12+ 1998 BMI (ht and wt on same day) for age 18+ 01/03/2004 Hepatitis C screening for age 18-79 01/03/2004 Pap test for age 21-65 06/29/2015 2 (Completed outside of [facility]), 12/26/2007, 05/11/2007, Additional history exists Tetanus booster 11/16/2021 11/16/2011, 11/16/2011 COVID-19 vaccine series ( season) 2024 Influenza for age 9-49 06/16/2024 11/16/2011 Tdap Completed 11/16/2011 HIV for age 15-65 Completed 11/22/2013, 12/17/2007 Pneumococcal series for age 6-64 Aged Out No longer eligible based on patient's age to complete this topic Procedures Procedure Name Priority Date/Time Associated Diagnosis Comments ANTI HIV 1/2 Routine 11/22/2013 3:53 PM SUPERVISOR PUBLIC MESSAGE SERVICE Supervision of other normal DIGITAL CONTENT COORDINATOR THIN PREP PAP SCREEN IMAGED Routine 12/26/2007 2:52 PM CDT Screening Malignant Neoplasms Cervix from Last 3 Months or Most Recently Relevant to Health Maintenance Results * ANTI HIV 1/2 [76597.0] (11/22/2013 3:53 PM SUPERVISOR PUBLIC MESSAGE SERVICE) ANTI HIV 1/2 Non-reacti ve [facility] Blood specimen (specimen) BLOOD SPECIMEN / Unknown 11/22/2013 3:53 PM SUPERVISOR PUBLIC MESSAGE SERVICE 11/22/2013 3:47 PM SUPERVISOR PUBLIC MESSAGE SERVICE Tamera [place] MD SEND OUTS [facility] INTERNAL ZIP [phone] [place] [address] * DIGITAL CONTENT COORDINATOR THIN PREP PAP SCREEN IMAGED (12/26/2007 2:52 PM CDT) CYTOLOGY ??CYTOPATHOLOGY REPORT ??[facility] ?? Status: Final Report ? [id number] ?? CLINICAL INFORMATION ?LMP ? : 06/2007 ?Previous Pap Date ? : 05/11/07 ?Previous PAP Dx ? : Negative for intraepithelial lesion or ?malignancy. ?Previous [place]/bx date : None ?Previous Colposcopy/Bx: None ?Hormone Usage ? : None ?Menstrual Status ?: ?Appearance of Cervix ??: NL ?[place]/Bx done today ?: No ?HPV Request ? [...] 12/26/07 ?? ACCESSIONED: 12/26/07 ?? SIGNED: 12/31/07 [facility] Cervical (Cervical) 12/26/2007 2:52 PM CDT 12/26/2007 2:49 PM CDT Tamera [place] MD PATHOLOGY/CYTOLOGY [facility] INTERNAL ZIP [address] [address] from Last 3 Months or Most Recently Relevant to Health Maintenance Advance Directives * Full Code (Latest Code Status on File) Date Activated Date Inactivated Comments 01/22/2019 11:48 PM 01/23/2019 4:50 PM * Full Code Date Activated Date Inactivated Comments 02/20/2012 7:00 AM 02/20/2012 3:36 PM Care Teams Steel Box Toe Inserter Relationship Specialty Start Date End Date Kristofer Ladd MBBS [address] [place] [address] FABIENNE Grider [address] PCP - General Family Practice 12/24/19
--- OUTSIDE RECORDS SUMMARY | 2024-07-11 23:18 | XMS_ITS | Encounter Summary ---
Author Organization [facility] Address [address] [place] [address] Care Team Providers Care Anesthesia Resident Name Role Phone Elsewhere, Pcp Primary Care Provider Unavailabl e Encounter Details Date Type Department Care Team (Latest Contact Info) Description 05/30/2024 2:33 PM CDT - 05/30/2024 11:59 PM CDT Hospital Encounter Department of Laboratory Medicine in [place], [place] [address] [phone] Reid Garcia M.D. [address] [phone] Malaise (Concern For Covid-19) Discharge Disposition: Home or Self Care Social History Tobacco Use Types Packs/Day Years Used Date Smoking Tobacco: Some Days Cigarettes Smokeless Tobacco: Never Alcohol Use Standard Drinks/Week Comments Yes 0 (1 standard drink = 0.6 oz pur e alcohol) special occasions [facility] Utilities Answer Date Recorded In the past 12 months has [facility] [employer], gas, oil, or water [employer] threatened to shut off services in your [...] How often do you attend chur or christianity services? More than 4 times per year 10/19/2021 Do you belong to any clubs o r organizations such as moravian groups, unions, fraternal or athletic groups, or [...] your living situation today? I have a [facility] place to live 05/30/2024 Education Answer [...] CDT Reid Garcia M.D. LAB BLOOD ADD-ON [facility] [address] [place] [address], [place] OW[facility] in [place] [address] [place] [address] * (ABNORMAL) Basic Metabolic Panel (05/30/2024 2:40 [...] CDT Reid Garcia M.D. LAB BLOOD ADD-ON [facility] [address] [place] [address], [facility] OWAT [facility] in [place] [address] [place] [address] * (ABNORMAL) CBC with Differential, Blood (05/30/2024 [...] CDT Reid Garcia M.D. LAB BLOOD ADD-ON [facility] [address] [place] [address], [facility] OWAT [facility] [place] [address] [place] [address] documented in this encounter Visit Diagnoses Diagnosis Malaise (Concern For Covid-19) documented in this encounter Additional Health Concerns Infection Onset Date Last Indicated Resolved Time COVID19 Pending 05/30/2024 05/30/2024 05/30/2024 3 :29 PM CDT documented as of this encounter Care Teams Anesthesia Resident Relationship Specialty Start Date End Date Elsewhere, Pcp PCP - General Family Medicine 10/08/20 documented as of this encounter
--- OUTSIDE RECORDS SUMMARY | 2024-07-11 23:18 | XMS_ITS | Encounter Summary ---
Author Organization [facility] Address [address] [place] [address] Care Team Providers Care Rolling Mill Operator Name Role Phone Elsewhere, Pcp Primary Care Provider Unavailabl e Reason for Visit * Reason Onset Date Comments Fatigue 05/30/2024 Numbness 05/30/2024 Encounter Details Date Type Department Care Team (Late st Contact Info) Description 05/30/2024 Nurse Triage Department of Community Internal Medicine in [place], [place] [address] [place] [phone] River Danielle R.N. [address] [place] [phone] Fatigue; Numbness Social History Tobacco Use Types Packs/Day Years Used Date Smoking Tobacco: Some Days Cigarettes Smokeless Tobacco: Never Alcohol Use Standard Drinks/Week Comments Yes 0 (1 standard drink = 0.6 oz pur e alcohol) special occasions [facility] Utilities Answer Date Recorded In the past 12 months has [facility] [employer], gas, oil, or water [employer] threatened to shut off services in your [...] week 10/19/2021 How often do you attend [facility] or rastafari services? More than 4 times per year 10/19/2021 Do you belong to any clubs o r organizations such as mandaen groups, unions, fraternal or athletic groups, or [...] Answer Date Recorded PHQ-2 Score 0 05/30/2024 [facility] of Occupat ional Health - [...] your living situation today? I have a [facility] place to live 05/30/2024 Education Answer [...] present > 24 hours Protocols used: Neurologic [id number] Care Advice Patient/Caregiver understands and will follow care advice?: Yes, able to teach back Neurologic [id number] Nurse River Gu May 30, 2024 10:17 AM Care Advice SEE PCP WITHIN 3 DAYS: * You need to be seen within 2 or 3 days. * PCP VISIT: Call your doctor (or COMPRESSOR OPERATOR PORTABLE/PA) during regular office hours and make an [...] on filedocumented in this encounter Care Teams Rolling Mill Operator Relationship Specialty Start Date End Date Elsewhere, Pcp PCP - General Family Medicine 10/08/20 documented as of this encounter
--- OUTSIDE RECORDS SUMMARY | 2024-07-11 23:18 | XMS_ITS | Clinical Summary ---
Author Organization [facility] Address [address] [place] [address] Care Team Providers Care Public Area Supervisor Name Role Phone Elsewhere, Pcp Primary Care Provider Unavailabl e Source Comments Patient records contain information from all sites at [facility]. For routine questions regarding patient records, call [phone] during business hours, M-F 8:00 AM - 5:00 PM Central Time. Record requests for emergency care only can be directed to [phone] at any time.[facility] Allergies Active Allergy Reactions Criticality [...] Hospital Encounter Department of Laboratory Medicine in [place], [place] [address], [place] [address] Reid Garcia M.D. [place] (Concern For Covid-19) Discharge Disposition: Home or Self Care 05/30/2024 2:00 PM CDT Office Visit Department of Family Medicine, [facility], in [place], [place] [address], [place] [address] Reid Garcia M.D. [place] (Concern For Covid-19) (Primary Dx) 05/30/2024 Nurse Triage Department of Community Internal Medicine in [place], [place] [address] [place] [address] River Danielle R.N. Fatigue; Numbness from Last [...] 0.6 oz pur e alcohol) special occasions [facility] Utilities Answer Date Recorded In the past 12 months has [facility] [employer], [employer], or water [employer] threatened to shut off services in your [...] How often do you attend chur or quaker services? More than 4 times per year [...] Answer Date Recorded PHQ-2 Score 0 05/30/2024 [facility] [place] [facility] of Occupat ional Health - [...] your living situation today? I have a [facility] place to live 05/30/2024 Education Answer [...] T Respiratory Rate 20 10/03/2022 3:19 PM BALANCE TRUING INSPECTOR Oxygen Saturation 97% 10/03/2022 3:19 PM BALANCE TRUING INSPECTOR Inhaled Oxygen Concentration - - Weight 106 [...] 11/16/2021 11/16/2011 Tobacco Cessation counseling 04/26/2022 04/26/2021 Lipid (Cholesterol) Screening 01/24/2024 01/23/2019 COVID-19 Vaccine (1 - 2023-2 5 season) 2024 Influenza Vaccine (#1) 2024 2, 11/16/2011, 08/24/2011 [...] SCREEN HPV REFLEX Routine 08/24/2011 9:42 AM BALANCE TRUING INSPECTOR from Last 3 Months or Most Recently Relevant to Health Maintenance Results * (ABNORMAL) CBC with Differential, Blood (05/30/2024 2:40 PM CDT) [facility] Signature Hemoglobin 10.7(L) 11.6 - 15.0 g/dL 05/30/2024 [...] CDT Reid Garcia M.D. LAB BLOOD ADD-ON [facility] [address] [place] [address], [place] OW[place] [facility] in [place] [address] [place] [address] * S-TSH (Thyroid-Stimulating Hormone - Sensitive) (05/30/2024 2:40 PM CDT) TSH, Sensitive 0.9 0.3 - 4.2 mIU/L 05/30/2024 3:10 PM CDT OWAT Blood (Blood, Venous) 05/30/2024 2:40 PM CDT 05/30/2024 2:41 PM CDT Reid Garcia M.D. LAB BLOOD ADD-ON [facility] [address] [place] [address], [facility] OWAT [facility] in [place] [address] [place] [address] * (ABNORMAL) Basic Metabolic Panel (05/30/2024 2:40 [...] CDT Reid Garcia M.D. LAB BLOOD ADD-ON [facility] [address] [place] [address], [facility] OWAT [facility] in [place] [address] [place] [address] * SARS CoV-2, Influenza A/B, PCR (05/30/2024 2:31 PM CDT) [facility] Influenza A, PCR Undetected Undetected 05/30/20 3:29 PM CDT OWAT Comment:Influenza A viral RN A absent. Influenza B, PCR Undetected Undetected 05/30/20 3:29 PM CDT OWAT Comment:Influenza B viral RN A absent. SARS-Coronavirus -2, PCR Undetected Undetected 05/30/2024 3:29 PM CDT OWAT Comment: SARS-CoV-2 RNA absent. ?? ----ADDITIONAL INFORMATION---- This RT-PCR test using the Xpert Xpress SARS-CoV-2/Flu/RSV assay ([employer] performed on the GeneXBeststudy DX systems has received Emergency Use Authorization (EUA) by the U.S. Food and Drug Administration. Performance characteristics were verified by [facility] in a manner consistent with CLIA requirements. Fact sheets for this Emergency Use Authorization (EUA) assay can be found at the following links: For Healthcare Providers: https://www.fda.gov/media/291001/download For Patients: https://www.fda.gov/media/979178/download Specimen Source Swab, Nasopharynx 05/30/2024 2:49 PM CDT OWAT Swab (Nasopharynx) 05/30/2024 2:31 PM CDT 05/30/2024 2:49 PM CDT Reid Garcia M.D. LAB MICROBIOLOGY - G ENERAL ORDERABLES [facility] [address] [place] [address], [place] [facility] [place] [address] [place] [address] * ThinPrep Screen HPV Reflex (08/24/2011 9:42 AM BALANCE TRUING INSPECTOR) Interpretation [id number] POWERCHART HXThPrep Scrn Fnl-[place] See Comment POWERCHART Comment: A. ??ThinPrep Pap Test Screen (Cervical/Endocervical HPV Reflex): Satisfactory for evaluation. Negative for intraepithelial lesion or malignancy. HXThPrep Scrn Cyto-[place] See Comment POWERCHART Comment: Report electronically signed by NIXON Jaime(ASCP) 08/29/2011 13:51 Interpreted by: NIXON Dolan(ASCP) [facility] See Comment POWERCHART Comment: A. ??ThinPrep Pap Test Screen (Cervical/Endocervical HPV Reflex): Received cloudy specimen in ThinPrep vial. Test Performed by: [facility] Dpt of Lab Med and Pathology [address] [place] [address] Medical Insurance Collector: Omi Doyle III, M.D. Cervix/Endocervix 08/24/2011 9:42 AM BALANCE TRUING INSPECTOR Kings Drake Jr., M.D. LAB PAP PATHDX ORDERABLES POWERCHART from Last 3 Months or Most Recently Relevant to Health Maintenance Care Teams Public Area Supervisor Relationship Specialty Start Date End Date Elsewhere, Pcp PCP - General Family Medicine 10/08/20
[2024-07-11 23:51] VITALS: BP 102/66; PULSE 81; RESP 18; O2SAT 94
[2024-07-12 00:01] VITALS: BP 105/88; PULSE 77; RESP 18; O2SAT 96
[2024-07-12 00:16] VITALS: BP 124/74; PULSE 80; RESP 20; TEMP 37; O2SAT 99
[2024-07-12 00:25] VITALS: BP 124/74; PULSE 80; RESP 20; TEMP 37
== END 2024-07-12 00:27 | disposition home or self-care (01) ==
PROVIDERS: Emergency Provider Family Medicine; PCP Family Medicine
DX: S16.1XXA Strain of muscle, fascia and tendon at neck level, initial encounter (principal); S29.9XXA Unspecified injury of thorax, initial encounter; S89.91XA Unspecified injury of right lower leg, initial encounter; S09.90XA Unspecified injury of head, initial encounter; W18.30XA Fall on same level, unspecified, initial encounter; Y93.K1 Activity, walking an animal
CPT/HCPCS: 70450; 71101; 72125; 73590; 99284; 99285; 99291

== ENCOUNTER 2024-09-09 09:40 | Outpatient (CLI) | payer BC, SELFPAY ==
--- OUTSIDE RECORDS SUMMARY | 2024-09-09 09:45 | XMS_ITS | Referral Summary ---
Author Organization [facility] Address [address] [place] [address] Care Team Providers Care Breakfast Manager Name Role Phone Elsewhere, Pcp Primary Care Provider Unavailabl e Source Comments Patient records contain information from all sites at [facility]. For routine questions regarding patient records, call [phone] during business hours, M-F 8:00 AM - 5:00 PM Central Time. Record requests for emergency care only can be directed to [phone] at any time.[facility] Allergies Active Allergy Reactions Criticality Noted Date Comments Gadolinium-Containing Contrast Media Other (see comments) 08/24/2011 Iodinated Contrast Media Hives (Reselect Reaction) 05/19/2007 Medications * This document contains information received from the source organization and may not represent a complete record from that organization. acetaminophen (TYLENOL) 500 mg tablet Take 1,000 [...] 0.6 oz pur e alcohol) special occasions [facility] Utilities Answer Date Recorded In the past 12 months has e [employer], gas, oil, or water [employer] threatened to shut off services in your [...] 10/19/2021 How often do you attend chur ch or denominational services? More than 4 times per year [...] Answer Date Recorded PHQ-2 Score 0 05/30/2024 [facility] of Occupat ional [facility] - Occupational Stress Questionnaire Answer Date Recorded [...] your living situation today? I have a [place] place to live 05/30/2024 Education Answer Date Recorded What is the highest level of school you have completed or the highest degree you have received? 12th grade 04/23/2019 Comments No Sex and Gender Information Value Date Recorded Sex Assigned at Female 01/28/2019 9:58 AM CDT Legal Sex Female 3:29 PM SEWING INSPECTOR Gender Identity Female 01/28/2019 9:58 AM CDT Sexual Orientation Straight 01/28/2019 9: 58 AM CDT Last Filed Vital Signs Vital Sign Reading Time Taken Comments Blood Pressure 127/76 05/30/2024 2:03 PM CDT Pulse 98 05/30/2024 2:03 PM CDT Temperature 37.1 C (98.7 F) 05/30/2024 2:03 PM CDT Respiratory Rate 20 10/03/2022 3:19 PM SEWING INSPECTOR Oxygen Saturation 97% 10/03/2022 3:19 PM SEWING INSPECTOR Inhaled Oxygen Concentration - - Weight 106 kg (233 lb 14.5 oz) 05/30/2024 2:03 P M CDT Height 162.1 cm (5' 3.82) 07/16/2021 8:36 AM CD T Body Mass Index 40.38 07/16/2021 8:36 AM CDT Plan of Treatment Not on file Procedures Procedure Name Priority Date/Time Associated Diagnosis Comments THINPREP SCREEN HPV REFLEX Routine 08/24/2011 9:42 AM SEWING INSPECTOR from Last 3 Months or Most Recently Relevant to Health Maintenance Results * ThinPrep Screen HPV Reflex (08/24/2011 9:42 AM SEWING INSPECTOR) Interpretation [id number] POWERCHART [facility] See Comment POWERCHART Comment: A. ThinPrep Pap Test Screen (Cervical/Endocervical HPV Reflex): Satisfactory for evaluation. Negative for intraepithelial lesion or malignancy. [facility]ThPrep [facility] See Comment POWERCHART Comment: Report electronically signed by NIXON Jaime(ASCP) 08/29/2011 13:51 Interpreted by: Diana R. Campos, CT(ASCP) HX Spec Desc-[place] See Comment POWERCHART Comment: A. ThinPrep Pap Test Screen (Cervical/Endocervical HPV Reflex): Received cloudy specimen in ThinPrep vial. Test Performed by: [facility] Dpt of Lab Med and Pathology [address] [place] [address] Technical Mgr: Omi Doyle III, M.D. Cervix/Endocervix 08/24/2011 9:42 AM SEWING INSPECTOR us Kings Drake Jr., M.D. LAB PAP PATHDX ORDERAB LES Final Result POWERCHART from Last 3 Months or Most Recently Relevant to Health Maintenance Insurance [facility] Care Teams Breakfast Manager Relationship Specialty Start Date End Date Elsewhere, Pcp PCP - General Family Medicine 10/08/20
--- OUTSIDE RECORDS SUMMARY | 2024-09-09 09:45 | XMS_ITS | Clinical Summary ---
Author Organization [facility] Address [address] [place] [address] Care Team Providers Care Antisubmarine Weapons Officer Name Role Phone Elsewhere, Pcp Primary Care Provider Unavailabl e Source Comments Patient records contain information from all sites at [facility]. For routine questions regarding patient records, call [phone] during business hours, M-F 8:00 AM - 5:00 PM Central Time. Record requests for emergency care only can be directed to [phone] at any time.[facility] Allergies Active Allergy Reactions Criticality Noted [...] 0.6 oz pur e alcohol) special occasions [facility] Utilities Answer Date Recorded In the past 12 months has e [employer], gas, oil, or water [employer] threatened to shut off services in your [...] often do you attend chur ch or restoration services? More than 4 times per year [...] [facility] of Occupat ional [facility] - Occupational Stress Questionnaire Answer Date Recorded [...] Answer Date Recorded Dental: Regular Dentist Yes 07/12/20 21 Employment Answer Date Recorded Employment status Unemployed/not in th e paid workforce but seeking employment 05/30/2024 Housing Stability Answer Date Recorded What is your living situation today? I [address] a [address] [place] [address] to live 05/30/2024 Education Answer Date Recorded What is the highest level of school you have completed or the highest degree you have received? 12th grade 04/23/2019 Comments No Sex and Gender Information Value Date Recorded Sex Assigned at Female 01/28/2019 9:58 AM CDT Legal Sex Female 3:29 PM GRANT SPECIALIST Gender Identity Female 01/28/2019 9:58 AM CDT Sexual Orientation Straight 01/28/2019 9: 58 AM CDT Last Filed Vital Signs Vital Sign Reading Time Taken Comments Blood Pressure 127/76 05/30/2024 2:03 PM CDT Pulse 98 05/30/2024 2:03 PM CDT Temperature 37.1 C (98.7 F) 05/30/2024 2:03 PM CDT Respiratory Rate 20 10/03/2022 3:19 PM GRANT SPECIALIST Oxygen Saturation 97% 10/03/2022 3:19 PM GRANT SPECIALIST Inhaled Oxygen Concentration - - Weight 106 [...] of 3 - 19+ 3-dose series) 2005 Cervical/Vaginal Cancer Screening 08/24/2014 08/24/2011 DTaP,Tdap,and Td Vaccines (2 - Td or Tdap) 11/16/2021 11/16/2011 Tobacco Cessation counseling 04/26/2022 04/26/2021 Lipid (Cholesterol) Screening 01/24/2024 01/23/2019 COVID-19 Vaccine (1 - 2023-2 5 season) 2024 Influenza Vaccine (#1) 2024 2, 11/16/2011, 08/24/2011 Depression Screening (Annual PHQ-2) Completed 05/30/2024, 05/30/2024 HPV Vaccines Aged Out No longer eligi ble based on patient's age to complete this topic IPV Vaccines Aged Out No longer eligi ble based on patient's age to complete this topic Procedures Procedure Name Priority Date/Time Associated Diagnosis Comments THINPREP SCREEN HPV REFLEX Routine 08/24/2011 9:42 AM GRANT SPECIALIST from Last 3 Months or Most Recently Relevant to Health Maintenance Results * ThinPrep Screen HPV Reflex (08/24/2011 9:42 AM GRANT SPECIALIST) Interpretation [id number] POWERCHART HXThPrep Scrn [facility] See Comment POWERCHART Comment: A. ThinPrep Pap Test Screen (Cervical/Endocervical HPV Reflex): Satisfactory for evaluation. Negative for intraepithelial lesion or malignancy. HXPre Scrn Cyto-[place] See Comment POWERCHART Comment: Report electronically signed by NIXON Jaime(ASCP) 08/29/2011 13:51 Interpreted by: NIXON Dolan(ASCP) HX Spec Desc-[place] See Comment POWERCHART Comment: A. ThinPrep Pap Test Screen (Cervical/Endocervical HPV Reflex): Received cloudy specimen in ThinPrep vial. Test Performed by: [facility] Dpt of Lab Med and Pathology [address] [place] [address] Ham Doctor: Omi Doyle III, M.D. Cervix/Endocervix 08/24/2011 9:42 AM GRANT SPECIALIST Kings Drake Jr., M.D. LAB PAP PATHDX ORDERAB LES Final Result POWERCHART from Last 3 Months or Most Recently Relevant to Health Maintenance Insurance [facility] Care Teams Antisubmarine Weapons Officer Relationship Specialty Start Date End Date Elsewhere, Pcp PCP - General Family Medicine 10/08/20
--- OUTSIDE RECORDS SUMMARY | 2024-09-09 09:45 | XMS_ITS | Clinical Summary ---
Author Organization [facility] Address [place], [place] [address] Care Team Providers Care Social Media Editor Name Role Phone Kristofer Ladd Primary Care [...] subsequent 03/25/2013 Overview (11/17/2013): transfer care from [place] at 36 weeks Need to recheck HIV/STD [...] Epidur al Livin g Armaan peters Delivery Location:[facility] 2011 Term Comments:System [employer]. Please review and update details. Comments blood type A Positive Last Filed Vital Signs Vital Sign Reading Time Taken Comments Blood Pressure 118/99 09/22/2023 12:00 AM PERFORATOR OPERATOR Pulse 77 09/22/2023 12:00 AM PERFORATOR OPERATOR Temperature 36.8 C (98.3 F) 09/21/2023 10:22 PM PERFORATOR OPERATOR Respiratory Rate 20 09/21/2023 10:22 PM PERFORATOR OPERATOR Oxygen Saturation 97% 09/22/2023 12:00 AM PERFORATOR OPERATOR Inhaled Oxygen Concentration - - Weight 99.8 kg (220 lb) 09/21/2023 10:22 PM PERFORATOR OPERATOR Height 157.5 cm (5' 2) 09/21/2023 10:22 PM PERFORATOR OPERATOR Body Mass Index 40.24 09/21/2023 10:22 PM PERFORATOR OPERATOR Plan of Treatment Health Maintenance Due Date Last Done Comments Depression screening for age 12+ 1998 BMI (ht and wt on same day) for age 18+ 01/03/2004 Hepatitis C screening for age 18-79 01/03/2004 Pap test for age 21-65 06/29/2015 2 ([facility] 12/26/2007, 05/11/2007, Additional history exists Tetanus booster [...] ANTI HIV 1/2 Routine 11/22/2013 3:53 PM PERFORATOR OPERATOR Supervision of other normal INDUCTION COORDINATION POWER ENGINEER THIN PREP PAP SCREEN IMAGED Routine 12/26/2007 2:52 PM CDT Screening Malignant Neoplasms Cervix from Last 3 Months or Most Recently Relevant to Health Maintenance Results * ANTI HIV 1/2 [18475.0] (11/22/2013 3:53 PM PERFORATOR OPERATOR) ANTI HIV 1/2 Non-reacti ve [facility] Blood specimen (specimen) BLOOD SPECIMEN / Unknown 11/22/2013 3:53 PM PERFORATOR OPERATOR 11/22/2013 3:47 PM PERFORATOR OPERATOR Tamera Alexander MD SEND OUTS [facility] INTERNAL ZIP [id number] [place] [id number] * INDUCTION COORDINATION POWER ENGINEER THIN PREP PAP SCREEN IMAGED (12/26/2007 2:52 PM CDT) Pathologist [facility] CYTOLOGY CYTOPATHOLOGY REPORT [facility] Status: Final Report [id number] CLINICAL INFORMATION LMP : 06/2007 Previous Pap Date : 05/11/07 Previous PAP Dx : Negative for intraepithelial lesion or malignancy. Previous [place]/bx date : None Previous Colposcopy/Bx: None Hormone Usage : None Menstrual Status : Appearance of Cervix : NL [place]/Bx done today : No HPV Request : Reflex HPV test if PAP Dx ASCUS SPECIMEN SOURCE : Cervical/vaginal ThinPrep Vial, screening SPECIMEN ADEQUACY : Satisfactory for evaluation No endocervical component seen in a patient. INTERPRETATION/RES ULT: Negative for intraepithelial lesion or malignancy. Cytology 1st Screener : ivone Signed by: ivone This specimen was screened by the FDA approved ThinPrep Imaging System and manually reviewed. NOTE: The Pap test is a screening technique, not a diagnostic procedure. It is used primarily to screen for squamous cancers and precursor lesions. Published studies have shown that it is subject to both false negative and false positive results. The pap test should not be used as the sole means to diagnose or exclude pre-malignant and malignant lesions. COLLECTED: 12/26/07 ACCESSIONED: 12/26/07 SIGNED: 12/31/07 [facility] Cervical (Cervical) 12/26/2007 2:52 PM CDT 12/26/2007 2:49 PM CDT Tamera Alexander MD PATHOLOGY/CYTOLOGY [facility] INTERNAL ZIP [id number] [place] [id number] from Last 3 Months or Most Recently Relevant to Health Maintenance Advance Directives * Full Code (Latest Code Status on File) Date Activated Date Inactivated Comments 01/22/2019 11:48 PM 01/23/2019 4:50 PM * Full Code Date Activated Date Inactivated Comments 02/20/2012 7:00 AM 02/20/2012 3:36 PM Care Teams Social Media Editor Relationship Specialty Start Date End Date Kristofer Ladd MBBS [address] [place] [address] Av FABIENNE Clark [address] PCP - General Family Practice 12/24/19
--- OUTSIDE RECORDS SUMMARY | 2024-09-09 09:45 | XMS_ITS ---
Author Organization [facility] Address [address] [place] [address] Care Team Providers Care Manager Code Name Role Phone Unavailable Unavailable Unavailable Surgery Details Not on file Complications Check Surgery Details section. Procedure Estimated Blood Loss Check Surgery Details section. Procedure Findings Check Surgery Details section. Procedure Specimens Taken Check Surgery Details section.
== END 2024-09-09 09:41 | disposition home or self-care (01) ==
PROVIDERS: PCP Family Medicine; Visit Provider Family Medicine
DX: D50.9 Iron deficiency anemia, unspecified (principal); R60.9 Edema, unspecified; R53.83 Other fatigue; R10.13 Epigastric pain
CPT/HCPCS: 80048; 82728; 85025